=== PATIENT | male | born 1945 | race African-American/Black ===

== ENCOUNTER 2020-10-07 20:17 | Inpatient (IN) | payer MEDICARE ==
[~2020-10-07] VITALS: Ht 180.3 cm; Wt 54.4 kg
--- NOTE | 2020-10-07 20:30 | NUR ---
ED Nurse Note: Pt ambulated to ED from home c/o sharp stabbing pain in his chest that radiates to his L shoulder with dizziness and N for several hours at rest. Pt is A&OX4, vss pt placed on pvc monitor, EKG done, ERMD at bedside
--- NOTE | 2020-10-07 20:35 | NUR ---
ED Nurse Note: Pt denies pain or N at this moment
[2020-10-07] MEDS ORDERED: Omnipaque-300 100ml vial INJ STA (20:44)
--- NOTE | 2020-10-07 20:44 | Emergency Room Report ---
History of Present Illness General Chief Complaint: Chest Pain Source: Patient Present Illness HPI Patient presents with 2 problems. One is loss of appetite. This is associated with the 30 pound weight loss over 3 weeks. He also has had some vomiting. The second problem is chest pain. This has been going on for 3 weeks also. Feels that it is left anterior chest. He associates this with having had a vac cination in the left arm just prior to that time. The patient does smoke. He saw his doctor who ordered testing and x-rays a week ago but no results are come back yet. Patient denies diarrhea. His urine has been darker in color and orange. He rates the chest pain 4/10 and aching. It does not radiate. It somewhat positional. He denies it being exertional. The patient denies exposure to Covid positive contacts. No fevers, chills, sore throat, palpitations, dysuria, abdominal pain, shortness of breath, rashes, depression, anxiety, visual changes, dizziness, headache. Allergies: Coded Allergies: PENICILLINS (Verified Allergy, Unknown, 10/07/20) COVID-19 Screening Contact w/high risk pt: No Experienced COVID-19 symptoms?: No COVID-19 Testing performed MATERIAL CHECKER: No Patient History Past Medical History: see triage record Social History: Reports: smoking, alcohol use; Denies: drug use Social History Narrative Born in [place] moved to [place] age 10 Reviewed Nursing Documentation: PMH: Agreed; PSxH: Agreed Nursing Documentation-PM Past Medical History: No Stated History Review of Systems All Other Systems: negative except mentioned in HPI Physical Exam Vital Signs Date Time Temp Pulse Resp B/P (MAP) Pulse Ox O2 Delivery O2 Flow Rate FiO2 10/07/20 20:24 98.2 120 16 119/88 (98) 95 Room Air Sp02 EP Interpretation: reviewed, normal General Appearance: no apparent distress, GCS 15, non-toxic, thin, Chronically Ill Head: normocephalic Eyes: bilateral eye PERRL, bilateral eye EOMI, bilateral eye other - Arcus bilaterally ENT: moist mucus membranes Neck: supple Respiratory: lungs clear, normal breath sounds, other - Chest wall tenderness left anterior second and third ribs near sternum Cardiovascular #1: regular rate, rhythm, no edema Cardiovascular #2: 2+ radial (R) Gastrointestinal: normal inspection, normal bowel sounds, non tender, non- distended, other - Umbilical hernia easily reduced, scaphoid Genitourinary: no CVA tenderness Musculoskeletal: back normal, normal range of motion, no calf tenderness Neurologic: alert, oriented x3, grossly normal Psychiatric: mood/affect normal Skin: no rash, warm/dry, other - Clubbing Medical Decision Making Diagnostic Impression: Primary Impression: Metastatic cancer Qualified Codes: C79.9 - Secondary malignant neoplasm of unspecified site Additional Impressions: Bone metastases Liver metastases Pancreatic mass Leukocytosis Qualified Codes: D72.829 - Elevated white blood cell count, unspecified Weight loss COVID-19 ruled out by laboratory testing ER Course Patient presents with 2 main problems. 1 is weight loss and loss of appetite wi th vomiting. The second is chest pain. Differential includes acute myocardial infarction, costochondritis, bony metastasis to his chest from other possible GI or lung primary sources, pneumonia amongst others. Patient evaluated with EKG, chest x-ray, CT abdomen and chest and labs. Patient treated with aspirin and Toradol. Patient placed on a monitor car operator. EKG no injury. Chest x-ray with haziness left upper lobe. Leukocytosis. CT chest and abdomen and pelvis as below. Lung mass with bony metastasis. Mass head of pancreas with biliary dilatation. Hepatic lesions suggestive of metastatic disease. Renal metastasis. Antibiotics added for coverage of leukocytosis although infective process not identified. Discussed with Dr. Payton who accepts at [facility]. Discussed findings with patient and daughter including seriousness of diagnosis and the need for further evaluation and finding appropriate treatment plan. Pain in chest improved. COVID test negative. Laboratory Tests Test 10/07/20 20:30 10/07/20 20:45 White Blood Count 15.7 K/UL (4.8-10.8) H Red Blood Count 4.45 M/UL (4.70-6.10) L Hemoglobin 9.5 G/DL (14.2-18.0) L Hematocrit 29.5 % (42.0-52.0) L Mean Corpuscular Volume 66 FL (80-99) L Mean Corpuscular Hemoglobin 21.3 PG (27.0-31.0) L Mean Corpuscular Hemoglobin Concent 32.2 G/DL (32.0-36.0) Red Cell Distribution Width 17.1 % (11.6-14.8) H Platelet Count 251 K/UL (150-450) Mean Platelet Volume 8.6 FL (6.5-10.1) Neutrophils (%) (Auto) 72.3 % (45.0-75.0) Lymphocytes (%) (Auto) 8.9 % (20.0-45.0) L Monocytes (%) (Auto) 7.2 % (1.0-10.0) Eosinophils (%) (Auto) 11.0 % (0.0-3.0) H Basophils (%) (Auto) 0.6 % (0.0-2.0) Prothrombin Time 11.8 SEC (9.30-11.50) H Prothrombin Time INR 1.1 (0.9-1.1) Activated Partial Thromboplast Time 24 SEC (23-33) Sodium Level 134 MMOL/L (136-145) L Potassium Level 4.2 MMOL/L (3.5-5.1) Chloride Level 100 MMOL/L (98-107) Carbon Dioxide Level 25 MMOL/L (21-32) Anion Gap 9 mmol/L (5-15) Blood Urea Nitrogen 13 mg/dL (7-18) Creatinine 1.0 MG/DL (0.55-1.30) Estimated Glomerular Filtration Rate > 60 mL/min (>60) Glucose Level 102 MG/DL (74-106) Calcium Level 9.6 MG/DL (8.5-10.1) Magnesium Level 1.4 MG/DL (1.8-2.4) L Ferritin 300 NG/ML (8-388) Total Bilirubin 0.8 MG/DL (0.2-1.0) Aspartate Amino Transferase (AST) 32 U/L (15-37) Alanine Aminotransferase (ALT) 42 U/L (12-78) Alkaline Phosphatase 394 U/L (46-116) H Lactate Dehydrogenase 244 U/L (81-234) H Total Creatine Kinase 47 U/L (26-308) Troponin I 0.001 ng/mL (0.000-0.056) C-Reactive Protein, Quantitative 6.8 mg/dL (0.00-0.90) H Pro-B-Type Natriuretic Peptide 146 pg/mL (0-125) H Total Protein 7.2 G/DL (6.4-8.2) Albumin 3.0 G/DL (3.4-5.0) L Globulin 4.2 g/dL Albumin/Globulin Ratio 0.7 (1.0-2.7) L Lipase 192 U/L (73-393) Urine Color Yellow Urine Appearance Clear Urine pH 5 (4.5-8.0) Urine Specific [place] 1.010 (1.005-1.035) Urine Protein 2+ (NEGATIVE) H Urine Glucose (UA) Negative (NEGATIVE) Urine Ketones Negative (NEGATIVE) Urine Blood Negative (NEGATIVE) Urine Nitrite Negative (NEGATIVE) Urine Bilirubin Negative (NEGATIVE) Urine Urobilinogen 4 MG/DL (0.0-1.0) H Urine Leukocyte Esterase Negative (NEGATIVE) Urine RBC 0-2 /HPF (0 - 0) H Urine WBC 0 /HPF (0 - 0) Urine Squamous Epithelial Cells None /LPF (NONE/OCC) Urine Calcium Oxalate Crystals Few /LPF (NONE) Urine Bacteria None /HPF (NONE) Microbiology Date/Time Source Procedure Growth Status 10/07/20 20:45 Nasopharynx SARS-CoV-2 RdRp Gene Assay - Final Complete EKG Diagnostic Results Rate: normal Rhythm: NSR ST Segments: no acute changes - Nonspecific ST-T wave changes. Rate 98 Rhythm Strip Diag. Results EP Interpretation: yes Rhythm: NSR, no PVC's, no ectopy Chest X-Ray Diagnostic Results Chest X-Ray Diagnostic Results : Chest X-Ray Ordered: Yes # of Views/Limited/Complete: 1 View Indication: Chest Pain EP Interpretation: Yes Interpretation: no effusion, no pneumothorax, other - haziness ADAM Impression: Other Electronically Signed by: Electronically signed by Jr Benitez MD CT/MRI/US Diagnostic Results CT/MRI/US Diagnostic Results : Imaging Test Ordered: CT chest abdomen and pelvis Impression MPRESSION: Large mass in the region of the proximal pancreas partially surrounding the extrahepatic bile duct. There is significant intra-and extrahepatic biliary ductal dilatation. Finding is likely malignant. Adjacent mesenteric and retroperitoneal lymphadenopathy. Multiple hepatic metastases. Irregular gallbladder wall thickening indeterminate for inflammatory or neoplastic infiltration. Probable osteoblastic metastases. Findings highly suggestive of bilateral renal metastases. IMPRESSION: Malignant mass anterior right upper lobe extending to involve the chest wall. Adjacent satellite nodules and bony involvement anterior ribs on the left. Age- indeterminate mild fracture deformity T12. Last Vital Signs Date Time Temp Pulse Resp B/P (MAP) Pulse Ox O2 Delivery O2 Flow Rate FiO2 12/10/20 21:00 94 16 Room Air 10/07/20 21:00 98.2 121/71 95 Status: improved Disposition: SHORT-TERM HOSP Condition: Serious Jr Benitez MD Oct 07, 2020 20:44
[2020-10-07 21:00] VITALS: BP 121/71
--- NOTE | 2020-10-07 21:15 | NUR ---
ED Nurse Note: xray at bedside
[2020-10-07 21:18] LABS: ANION GAP 9 mmol/L (5-15); BLOOD UREA NITROGEN 13 mg/dL (7-18); CALCIUM 9.6 MG/DL (8.5-10.1); CARBON DIOXIDE 25 MMOL/L (21-32); CHLORIDE 100 MMOL/L (98-107); POTASSIUM 4.2 MMOL/L (3.5-5.1); SODIUM 134 MMOL/L (136-145)
[2020-10-07 21:21] LABS: INR 1.1 (0.9-1.1)
[2020-10-07 21:28] LABS: ALANINE AMINOTRANSFERASE 42 U/L (12-78); ALBUMIN/GLOBULIN RATIO 0.7 (1.0-2.7); ALKALINE PHOSPHATASE 394 U/L (46-116); ASPARTATE AMINO TRANSFERASE 32 U/L (15-37); BILIRUBIN,TOTAL 0.8 MG/DL (0.2-1.0); CREATINE KINASE 47 U/L (26-308); FERRITIN 300 NG/ML (8-388); LACTATE DEHYDROGENASE 244 U/L (81-234)
--- NOTE | 2020-10-07 21:33 | NUR ---
ED Nurse Note: Pt to CT
--- NOTE | 2020-10-07 22:00 | NUR ---
ED Nurse Note: Labs resent
[2020-10-07 22:05] LABS: BASOPHILS % (AUTO) 0.6 % (0.0-2.0); HEMATOCRIT 29.5 % (42.0-52.0); HEMOGLOBIN 9.5 G/DL (14.2-18.0); LYMPHOCYTES % (AUTO) 8.9 % (20.0-45.0); MEAN CORPUSCULAR VOLUME 66 FL (80-99); MONOCYTES % (AUTO) 7.2 % (1.0-10.0); NEUTROPHILS % (AUTO) 72.3 % (45.0-75.0); PLATELET COUNT 251 K/UL (150-450); RED BLOOD COUNT 4.45 M/UL (4.70-6.10); RED CELL DISTRIBUTION WIDTH 17.1 % (11.6-14.8); WHITE BLOOD COUNT 15.7 K/UL (4.8-10.8)
--- NOTE | 2020-10-07 22:29 | Diagnostic Imaging Report ---
EXAM: CT Abdomen and Pelvis With Intravenous Contrast CLINICAL HISTORY: CP TECHNIQUE: Axial computed tomography images of the abdomen and pelvis with intravenous contrast. CTDI is 3 mGy and DLP is 147.2 mGy-cm. One or more of the following dose reduction techniques were used: automated exposure control, adjustment of the mA and/or kV according to patient size, use of iterative reconstruction technique. COMPARISON: No relevant prior studies available. FINDINGS: Artifacts: Motion degraded study. Lung bases: Unremarkable. No mass. No consolidation. ABDOMEN: Liver: Multiple ill-defined masses in the hepatic parenchyma by most consistent with metastases. Gallbladder and bile ducts: Poorly defined mass in the region of the proximal pancreas partially surrounding segments of the extrahepatic bile duct. Mass difficult to separate from adjacent structures. Moderate intrahepatic and significant extrahepatic biliary ductal dilatation. Extrahepatic biliary ductal dilatation measures up to 13.5 mm. Mass unclear if of pancreatic origin or possibly of the biliary tree. There is moderate pancreatic ductal dilatation. The gallbladder is significantly distended with irregular gallbladder wall thickening. No gallstones identified. Unclear if wall thickening is malignant or inflammatory. Pancreas: See above. Spleen: Small indeterminate low attenuation focus anterior spleen. No splenomegaly. Adrenals: Unremarkable. No mass. Kidneys and ureters: Slightly irregular lesion in the anterior mid right renal pole measuring 55 HU and likely solid. Smaller foci are noted posterior and more inferior left kidney. These are indeterminate for primary or metastatic metastases. Similar lesion right kidney medial midpole and subcentimeter foci superior right upper renal pole. These are also likely solid and likely metastases. No hydronephrosis. Stomach and bowel: Moderate to large amount of retained stool in the colon. Negative for lower GI tract obstruction or pneumatosis. No mucosal thickening. PELVIS: Appendix: No findings to suggest acute appendicitis. Bladder: See below. Reproductive: Moderate irregular enlargement of the prostate gland. There is mass-effect on the posterior bladder base. Findings indeterminate for malignancy. ABDOMEN and PELVIS: Intraperitoneal space: Unremarkable. No free air. No significant fluid collection. Bones/joints: Irregular sclerotic focus left iliac bone adjacent to the SI joint, indeterminate for metastasis. There are additional small irregular sclerotic foci that are also indeterminate for metastases. No acute fracture. No dislocation. Soft tissues: Unremarkable. Vasculature: Unremarkable. No abdominal aortic aneurysm. Lymph nodes: Mesenteric and retroperitoneal lymphadenopathy in the abdomen. IMPRESSION: Large mass in the region of the proximal pancreas partially surrounding the extrahepatic bile duct. There is significant intra-and extrahepatic biliary ductal dilatation. Finding is likely malignant. Adjacent mesenteric and retroperitoneal lymphadenopathy. Multiple hepatic metastases. Irregular gallbladder wall thickening indeterminate for inflammatory or neoplastic infiltration. Probable osteoblastic metastases. Findings highly suggestive of bilateral renal metastases. EXAM: CT Chest With Intravenous Contrast CLINICAL HISTORY: CP TECHNIQUE: Axial computed tomography images of the chest with intravenous contrast. CTDI is 3 mGy and DLP is 147.2 mGy-cm. One or more of the following dose reduction techniques were used: automated exposure control, adjustment of the mA and/or kV according to patient size, use of iterative reconstruction technique. COMPARISON: No relevant prior studies available. FINDINGS: Lungs: Heterogeneously enhancing mass anterior left upper lobe invading into the mediastinum, extending through the pleura into the anterior chest wall with involvement of at least the first 3 ribs on the left. Intrathoracic portion of the mass measures approximately 12.8 cm craniocaudad, up to 4.1 cm AP and 6.9 cm transverse. The portion of the mass involving the chest wall retropectoral but likely invades and involves the pectoralis muscle measures approximately 2.4 x 9.6 x 8.7 cm. There are multiple adjacent ill-defined satellite nodules in the left upper lobe. Moderate underlying centrilobular emphysema. Indeterminate pleural-based nodule lateral left lower lobe measuring approximately 8.5 x 3.5 mm. Pleural space: Unremarkable. No pneumothorax. No significant effusion. Heart: Unremarkable. No cardiomegaly. No significant pericardial effusion. Bones/joints: Age indeterminate fracture T12 body with mild depression. Soft tissues: See above. Vasculature: Unremarkable. No thoracic aortic aneurysm. Lymph nodes: Unremarkable. No enlarged lymph nodes. IMPRESSION: Malignant mass anterior right upper lobe extending to involve the chest wall. Adjacent satellite nodules and bony involvement anterior ribs on the left. Age-indeterminate mild fracture deformity T12. <MYCVCSECTION> Communications: 10/07/20 22:41 Verify Receipt Verified receipt with Dr. Benitez on 10/07 22:41 (-08:00)
[2020-10-07] MEDS ORDERED: Cefepime HCl 1 GM in D5W 55 ML IVPB ONE (22:30)
[2020-10-07 23:58] LABS: APPEARANCE,URINE CLEAR; BILIRUBIN, URINE NEGATIVE (NEGATIVE); COLOR,URINE YELLOW; GLUCOSE, URINE (UA) NEGATIVE (NEGATIVE); KETONES,URINE NEGATIVE (NEGATIVE); LEUKOCYTE ESTERASE ,URINE NEGATIVE (NEGATIVE); NITRITE,URINE NEGATIVE (NEGATIVE); PH,URINE 5 (4.5-8.0); PROTEIN,URINE 2+ (NEGATIVE); UROBILINOGEN,URINE 4 MG/DL (0.0-1.0)
[2020-10-08] VITALS (11 sets, daily range): BP systolic 109–133; BP diastolic 67–85
--- NOTE | 2020-10-08 | NUR ---
ED Nurse Note: pt resting in bed with eyes closed, non-labored breathing, VSS, will continue to monitor
--- NOTE | 2020-10-08 00:45 | NUR ---
Covid(-) result faxed to [facility].
--- NOTE | 2020-10-08 04:00 | NUR ---
ED Nurse Note: Pt resting in bed with eyes closed, non-labored breathing. no signs of distress, will continue to monitor
--- NOTE | 2020-10-08 07:06 | NUR ---
HAND-OFF: Report given to SUKHJINDER kang.
--- NOTE | 2020-10-08 07:12 | NUR ---
ED Nurse Note: received report from libra causey.
[2020-10-08] MEDS ORDERED: TYLENOL EXTRA500 MG ORAL (08:12)
--- NOTE | 2020-10-08 08:15 | NUR ---
ED Nurse Note: patient admitted to m/s floor for weight loss and leukocytosis. report given to libra lorenz. pt transferred by wheelchair in stable condition, nad noted, vss with all belongings.
[2020-10-08] MEDS ORDERED: Acetaminophen 500mg (ES) tab ORAL PRN ×2 (10:00)
[2020-10-08] MEDS: HYDROmorphone 1mg/ml Carpuject IVP PRN ×2 (10:27→20:11)
[2020-10-08] MEDS: Aspirin Baby 81mg ORAL SCH (10:27)
[2020-10-08] MEDS: Vitamin D 1000 IU Tab ORAL SCH (10:27)
[2020-10-08] MEDS: Lisinopril 10mg tab ORAL SCH (10:27)
[2020-10-08] MEDS ORDERED: ASPIRIN81 MG ORAL (11:23)
[2020-10-08] MEDS ORDERED: COLACE100 MG ORAL (11:23)
[2020-10-08] MEDS ORDERED: TYLENOL325 M1 PO (11:23)
[2020-10-08] MEDS ORDERED: LISINOPRIL5 MG ORAL (11:23)
[2020-10-08] MEDS ORDERED: PRAVASTATIN SOD20 M1 ORAL (11:23)
[2020-10-08] MEDS ORDERED: NORVASC5 MG ORAL (11:23)
[2020-10-08] MEDS ORDERED: VITAMIN D3125 MCG PO (11:23)
--- NOTE | 2020-10-08 11:52 | General Progress Note ---
Subjective ROS Limited/Unobtainable: Yes Allergies: Coded Allergies: PENICILLINS (Verified Allergy, Unknown, 10/07/20) Objective Last 24 Hour Vital Signs Date Time Temp Pulse Resp B/P (MAP) Pulse Ox O2 Delivery O2 Flow Rate FiO2 10/08/20 10:28 90 109/85 10/08/20 10:27 109/85 10/08/20 10:21 Room Air 10/08/20 08:50 97.8 90 19 109/85 (93) 96 10/08/20 08:13 98.1 77 18 126/74 100 Room Air 10/08/20 07:00 98.2 82 16 123/67 98 Room Air 10/08/20 03:00 98.2 98 14 118/69 96 Room Air 10/08/20 00:00 98.2 102 16 126/72 95 Room Air 10/07/20 21:00 94 16 Room Air 10/07/20 21:00 98.2 94 16 121/71 95 Room Air 10/07/20 20:24 98.2 120 16 119/88 (98) 95 Room Air Laboratory Tests 10/07/20 20:30: White Blood Count 15.7H, Red Blood Count 4.45L, Hemoglobin 9.5L, Hematocrit 29.5L, Mean Corpuscular Volume 66L, Mean Corpuscular Hemoglobin 21.3L, Mean Corpuscular Hemoglobin Concent 32.2, Red Cell Distribution Width 17.1H, Platelet Count 251, Mean Platelet Volume 8.6, Neutrophils (%) (Auto) 72.3, Lymphocytes (%) (Auto) 8.9L, Monocytes (%) (Auto) 7.2, Eosinophils (%) (Auto) 11.0H, Basophils (%) (Auto) 0.6, Prothrombin Time 11.8H, Prothromb Time International R atio 1.1, Activated Partial Thromboplast Time 24, Sodium Level 134L, Potassium Level 4.2, Chloride Level 100, Carbon Dioxide Level 25, Anion Gap 9, Blood Urea Nitrogen 13, Creatinine 1.0, Estimat Glomerular Filtration Rate > 60, Glucose Level 102, Calcium Level 9.6, Magnesium Level 1.4L, Ferritin 300, Total Bilirubin 0.8, Aspartate Amino Transf (AST/SGOT) 32, Alanine Aminotransferase (ALT/SGPT) 42, Alkaline Phosphatase 394H, Lactate Dehydrogenase 244H, Total Creatine Kinase 47, Troponin I 0.001, C-Reactive Protein, Quantitative 6.8H, Pro-B-Type Natriuretic Peptide 146H, Total Protein 7.2, Albumin 3.0L, Globulin 4.2, Albumin/Globulin Ratio 0.7L, Lipase 192 10/07/20 20:45: Urine Color Yellow, Urine Appearance Clear, Urine pH 5, Urine Specific [place] 1.010, Urine Protein 2+H, Urine Glucose (UA) Negative, Urine Ketones Negative, Urine Blood Negative, Urine Nitrite Negative, Urine Bilirubin Negative, Urine Urobilinogen 4H, Urine Leukocyte Esterase Negative, Urine RBC 0-2H, Urine WBC 0, Urine Squamous Epithelial Cells None, Urine Calcium Oxalate Crystals Few, Urine Bacteria None Height (Feet): 5 Height (Inches): 11.00 Weight (Pounds): 120 General Appearance: no apparent distress EENT: normal ENT inspection Neck: supple Cardiovascular: normal rate Respiratory/Chest: decreased breath sounds Abdomen: hypoactive bowel sounds Extremities: non-tender Assessment/Plan Assessment/Plan: pancreatic mass with liver mets biliary dilatation anemia wt loss plan CT guided liver biopsy for DX tumor markes may need EUS and biopsy and ERCP will Marc Jameson MD Oct 08, 2020 11:52
[2020-10-08] MEDS ORDERED: Sodium Bicarbonate 4% 2.4meq/5ml vial IV PRN (12:00)
[2020-10-08] MEDS ORDERED: Lidocaine 1% Plain 30 ml INJ PRN (12:00)
[2020-10-08] MEDS ORDERED: HYDROmorphone 1mg/ml Carpuject IVP PRN (12:15)
--- NOTE | 2020-10-08 14:15 | NUR ---
NURSE NOTES: P/u by SUKHJINDER Arriaza and Soham for US guided liver biopsy. Consent signed by pt. Patient transported in stable condition.
--- NOTE | 2020-10-08 14:15 | NUR ---
NURSE NOTES: Received Pt from SUKHJINDER Ramsey. Pt is stable on RA. No complaint or s/s of distress at this time. Pt verbalized understanding of procedure to be done. Consent signed. Pt in bed for transport. Pt transported to Radiology without incident.
--- NOTE | 2020-10-08 14:20 | NUR ---
NURSE NOTES: At radiology, Pt was explained by Dr Krystian Adam regarding ultrasound guided biopsy of the chest. pt originally was to do ultrasound/CT guided biopsy of the liver but upon reviewing CT of the chest/abd/pelvis, biopsy of chest would be safer. Risks and benefits explained to pt, Pt given opportunity to ask questions and options. Pt verbalized understanding of procedure, and verbally agreed. pt is AOx4. Pt signed consent at this time, witnessed by Sofiya SLAUGHTER, and Soham HERNÁNDEZ.
--- NOTE | 2020-10-08 15:03 | NUR ---
CASE MANAGEMENT:INITIAL REVIEW 74 YR OLD MALE PRESENTED TO ED FROM HOME CC;CHEST PAIN Hx;METASTATIC CANCER TO BONE AND LIVER SI;WEIGHT LOSS. LEUKOCYTOSIS. COVID PUI. 98.2 120 16 126/72 95% ON RA WBC 15.7 H/H 9.5/29.5 NA 134 MAG 1.4 ALP 394 LDH 244 CRP 6.8 ALB 3.0 PT 11.8 UA+ PROTEIN, UROBILINOGEN, RBC COVID RAPID ~ NEGATIVE CHEST/ABD/PELVIS CT ~ Large mass in the region of the proximal pancreas partially surrounding the extrahepatic bile duct. There is significant intra-and extrahepatic biliary ductal dilatation. Finding is likely malignant. Adjacent mesenteric and retroperitoneal lymphadenopathy. Multiple hepatic metastases. Irregular gallbladder wall thickening indeterminate for inflammatory or neoplastic infiltration. Probable osteoblastic metastases. Findings highly suggestive of bilateral renal metastases. IS;IVF NS BOLUS CEFEPIME IV ADMITTED TO MED SURG MED SURG STATUS DCP;FROM HOME PLAN; plan CT guided liver biopsy for DX tumor markers may need EUS and biopsy and ERCP
--- NOTE | 2020-10-08 15:27 | Diagnostic Imaging Report ---
Indication: Chest pain Technique: XRAY Chest 1v Comparison: None Findings: Heart size within normal limits. Thoracic aorta is tortuous. There is asymmetric hazy opacification of the left apex. There is subtle irregularity of the left anterior first and second ribs. No pleural effusion or pneumothorax is seen. Area of atelectasis versus pulmonary edema. No acute fracture identified. IMPRESSION: Asymmetric haziness of the left apex with possible destructive lesions involving the anterior first and second ribs. Recommend further evaluation with CT of the chest as malignancy is not excluded.
--- NOTE | 2020-10-08 15:30 | NUR ---
NURSE NOTES: Received patient back from procedure. Patient in stable condition.
--- NOTE | 2020-10-08 15:30 | NUR ---
NURSE NOTES: Pt stable post procedure on RA 100%, unlabored even breathing. Pt reports no pain. Pt brought back to 4E, Pt report given back to SUKHJINDER Ramsey. Pt transferred from radiology to floor without incident with RT Soham.
--- NOTE | 2020-10-08 15:51 | Pre-Procedure Note/Attestation ---
Pre-Procedure Note/Attestation Complete Prior to Procedure Planned Procedure: left Procedure Narrative: US GUIDED CHEST WALL MASS BIOPSY Indications for Procedure Pre-Operative Diagnosis: ABDOMINAL AND CHEST WALL MASSES Attestation I attest that I discussed the nature of the procedure; its benefits; risks and complications; and alternatives (and the risks and benefits of such alternatives ), prior to the procedure, with the patient (or the patient's legal graphic art sales representative). I attest that, if there was a reasonable possibility of needing a blood transfusion, the patient (or the patient's legal graphic art sales representative) was given the [facility] standardized written summary, pursuant to the [place] Blood Safety Act ([place] Health and Safety Code # 1645, as amended). I attest that I re-evaluated the patient just prior to the surgery and that there has been no change in the patient's H&P, except as documented below: Krystian Adam MD Oct 08, 2020 15:51
--- NOTE | 2020-10-08 15:51 | Brief Operative Note ---
Immediate Post Operative Note Operative Note Chief Complaint: CHEST WALL MASS Pre-op Diagnosis: ABDOMINAL AND CHEST WALL MASSES Post-op Diagnosis: same as pre-op Surgeon: KRYSTIAN COLEMAN MD, MA Anesthesia: local Specimen: yes Complications: none Condition: stable Fluids: 0 Estimated Blood Loss: minimal Implant(s) used?: No Krystian Coleman MD Oct 08, 2020 15:51
--- NOTE | 2020-10-08 15:58 | Diagnostic Imaging Report ---
Indication: Reason For Exam: Chest PAIN Technique: Single AP view of the chest. Comparison: Chest radiograph dated 10/07/2020; CT chest dated 10/07/2020 Findings: The cardiomediastinal silhouette is unchanged in appearance. Redemonstration of haziness over the left upper lung corresponding to known chest wall mass. No new airspace consolidation. Emphysematous changes are again noted. No pneumothorax or pleural effusion. IMPRESSION: No significant change when compared to most recent examination.
--- NOTE | 2020-10-08 16:15 | History and Physical Report ---
DATE OF ADMISSION: 10/07/2020 HISTORY OF PRESENT ILLNESS: This is a 74-year-old male who presents to the hospital with weight loss. He also reported nausea and emesis. He also reported epigastric and sternal chest pain. He denies alcohol or tobacco usage. He denies diarrhea. He was seen and evaluated and found to have abnormalities consistent with metastatic carcinoma on assessment. LIST OF HOME MEDICATIONS: Norvasc, aspirin, lisinopril, and pravastatin. PAST HISTORY: Hypertension, hyperlipidemia. ALLERGIES: Penicillin. REVIEW OF SYSTEMS: Denies any headaches, hematemesis, melena, or hematochezia. Admits to having unspecified weight loss. PHYSICAL EXAMINATION: GENERAL: A 74-year-old male. HEENT: Unremarkable. LUNGS: Clear breath sounds bilaterally. ABDOMEN: Soft. EXTREMITIES: There is no edema. NEUROLOGIC: Nonfocal. VITAL SIGNS: Blood pressure 110/70, heart rate 94, respirations 19. He is afebrile. O2 sat 99% on room air. LABORATORY DATA: Lab testing shows white count 15, hemoglobin 9.5, platelet count is normal. Sodium 134, magnesium 1.4, alk phos is 24, LDH 244. AST ALT are normal. He underwent imaging studies and a CT chest and abdomen was obtained, which shows that he has a large mass in the proximal pancreas and multiple hepatic masses. IMPRESSION: 1. 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 2. Hypertension. 3. Hyperlipidemia. DISCUSSION: Additional findings include a mass in the left upper lobe and between mediastinum extending to the pleura into the anterior chest wall with the first 2 ribs as well. He also has emphysema. I suspect he has metastatic carcinoma. I discussed with the patient we will recommend liver biopsy. He may be a candidate for chemotherapy versus palliative care. We will follow carefully. Bernard Myers M.D. DR: RENAN JOB#: [id number] CC:
--- NOTE | 2020-10-08 16:17 | Diagnostic Imaging Report ---
SOFT TISSUE MASS BIOPSY Indication: Chest wall mass Technique: Informed consent obtained prior to commencement of the procedure. Risks, including but not limited to hemorrhage, infection, sampling error discussed with patient, all questions answered. He indicated his willingness to proceed. Ultrasound used to localize the optimal puncture site in the left chest subcutaneous soft tissues. Sterile prepping and draping with maximum barrier sterile technique including sterile ultrasound gel and sterile ultrasound probe cover. Local anesthesia with one percent lidocaine. Under real-time ultrasound guidance, total 4 needle passes made into the anterior left chest wall using 18-gauge coaxial needle with an Achieve automated biopsy gun. Specimens placed in formalin, submitted to pathology. The patient tolerated the procedure well, without immediate complication. Comparison: CT chest dated 10/07/2020. Findings: Initial ultrasound demonstrating large heterogeneous soft tissue mass interposed between and above left anterior ribs corresponding to CT chest findings. Impression: Successful ultrasound-guided coaxial core needle biopsy of left chest wall mass. No evidence of postbiopsy hematoma.
--- NOTE | 2020-10-08 16:50 | Consultation ---
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 Surgical to evaluate assist with care. Patient seen, patient evaluated, chart reviewed. Currently no nausea vomiting fever chills. Decreased appetite. Furthermore patient states he is feeling really weak lately states a few weeks ago he had the flu shot and since has developed a significant weakness that he cannot tell what it is. Also noted chest lesion. CT with lung lesion to chest wall growing Allergies: Coded Allergies: PENICILLINS (Verified Allergy, Unknown, 10/07/20) COVID-19 Screening Contact w/high risk pt: No Experienced COVID-19 symptoms?: No Medication History Scheduled Acetaminophen (Tylenol), 500 MG PO DAILY, (Reported) Amlodipine Besylate (Norvasc), 5 MG ORAL DAILY, (Reported) Aspirin* (Aspirin*), 81 MG ORAL DAILY, (Reported) Docusate Sodium* (Colace*), 100 MG ORAL DAILY, (Reported) Lisinopril (Lisinopril*), 10 MG ORAL DAILY, (Reported) Pravastatin Sod* (Pravastatin Sod*), 40 MG ORAL BEDTIME, (Reported) Scheduled PRN Acetaminophen* (Tylenol Extra Strength*), Unknown Dose ORAL Q6H PRN for Mild Pain/Temp > 100.5, (Reported) Miscellaneous Medications Cholecalciferol (Vitamin D3) (Vitamin D3), 1,000 MCG PO, (Reported) Patient History History Provided By: Patient, Medical Record, PMD Healthcare decision maker Resuscitation status Advanced Directive on File Past Medical/Surgical History Past Medical/Surgical History: (1) Metastatic cancer (2) Bone metastases (3) Liver metastases (4) COVID-19 ruled out by laboratory testing (5) Leukocytosis (6) Weight loss (7) Pancreatic mass Review of Systems Review of Symptoms General ROS: no weight loss or fever Psychological ROS: no depression or mood changes, no memory loss Ophthalmic ROS: no visual changes or eye irritation ENT ROS: no nasal congestion, hearing loss, dizziness Allergy and Immunology ROS: no allergic symptoms or urticaria Hematological and Lymphatic ROS: no swollen glands, unusual bleeding or bruising Endocrine ROS: no polyuria, polydipsia, weight changes, temperature intolerance Respiratory ROS: no cough, shortness of breath, or wheezing Cardiovascular ROS: no chest pain or dyspnea on exertion Gastrointestinal ROS: denies abdominal pain, bright red blood in stool. Musculoskeletal ROS: no myalgias or arthralgias Neurological ROS: no TIA or stroke symptoms Dermatological ROS: no new or changing skin lesions, rashes or pruritis Physical Exam Physical Exam General appearance: alert, cooperative, no distress, appears stated age Head: Normocephalic, without obvious abnormality, atraumatic Eyes: conjunctivae/corneas clear. PERRL, EOM's intact. Fundi benign Throat: Lips, mucosa, and tongue normal. Teeth and gums normal Neck: supple, symmetrical, trachea midline, no adenopathy, thyroid: not enlarged, symmetric, no tenderness/mass/nodules, no carotid bruit and no JVD Lungs: dec to auscultation bilaterally left chest wall with lesion and extension exanding mass Heart: regular rate and rhythm, S1, S2 normal, no murmur, click, rub or gallop Abdomen: soft, non-tender. Bowel sounds normal. No masses, no organomegaly Extremities: extremities normal, atraumatic, no cyanosis or edema Pulses: 2+ and symmetric Skin: Skin color, texture, turgor normal. No rashes or lesions Neurologic: Grossly normal Last 24 Hour Vital Signs Date Time Temp Pulse Resp B/P (MAP) Pulse Ox O2 Delivery O2 Flow Rate FiO2 10/08/20 16:00 97.7 90 20 122/81 (95) 100 10/08/20 15:10 97.7 90 16 122/81 (95) 100 10/08/20 15:07 84 19 133/79 (97) 100 10/08/20 15:02 97.3 94 18 125/77 (93) 99 10/08/20 14:27 86 17 10/08/20 12:00 98.7 95 19 110/71 (84) 94 10/08/20 10:28 90 109/85 10/08/20 10:27 109/85 10/08/20 10:21 Room Air 10/08/20 08:50 97.8 90 19 109/85 (93) 96 10/08/20 08:13 98.1 77 18 126/74 100 Room Air 10/08/20 07:00 98.2 82 16 123/67 98 Room Air 10/08/20 03:00 98.2 98 14 118/69 96 Room Air 10/08/20 00:00 98.2 102 16 126/72 95 Room Air 10/07/20 21:00 94 16 Room Air 10/07/20 21:00 98.2 94 16 121/71 95 Room Air 10/07/20 20:24 98.2 120 16 119/88 (98) 95 Room Air Laboratory Tests Test 10/07/20 20:30 10/07/20 20:45 White Blood Count 15.7 K/UL (4.8-10.8) H Red Blood Count 4.45 M/UL (4.70-6.10) L Hemoglobin 9.5 G/DL (14.2-18.0) L Hematocrit 29.5 % (42.0-52.0) L Mean Corpuscular Volume 66 FL (80-99) L Mean Corpuscular Hemoglobin 21.3 PG (27.0-31.0) L Mean Corpuscular Hemoglobin Concent 32.2 G/DL (32.0-36.0) Red Cell Distribution Width 17.1 % (11.6-14.8) H Platelet Count 251 K/UL (150-450) Mean Platelet Volume 8.6 FL (6.5-10.1) Neutrophils (%) (Auto) 72.3 % (45.0-75.0) Lymphocytes (%) (Auto) 8.9 % (20.0-45.0) L Monocytes (%) (Auto) 7.2 % (1.0-10.0) Eosinophils (%) (Auto) 11.0 % (0.0-3.0) H Basophils (%) (Auto) 0.6 % (0.0-2.0) Prothrombin Time 11.8 SEC (9.30-11.50) H Prothromb Time International Ratio 1.1 (0.9-1.1) Activated Partial Thromboplast Time 24 SEC (23-33) Sodium Level 134 MMOL/L (136-145) L Potassium Level 4.2 MMOL/L (3.5-5.1) Chloride Level 100 MMOL/L (98-107) Carbon Dioxide Level 25 MMOL/L (21-32) Anion Gap 9 mmol/L (5-15) Blood Urea Nitrogen 13 mg/dL (7-18) Creatinine 1.0 MG/DL (0.55-1.30) Estimat Glomerular Filtration Rate > 60 mL/min (>60) Glucose Level 102 MG/DL (74-106) Calcium Level 9.6 MG/DL (8.5-10.1) Magnesium Level 1.4 MG/DL (1.8-2.4) L Ferritin 300 NG/ML (8-388) Total Bilirubin 0.8 MG/DL (0.2-1.0) Aspartate Amino Transf (AST/SGOT) 32 U/L (15-37) Alanine Aminotransferase (ALT/SGPT) 42 U/L (12-78) Alkaline Phosphatase 394 U/L (46-116) H Lactate Dehydrogenase 244 U/L (81-234) H Total Creatine Kinase 47 U/L (26-308) Troponin I 0.001 ng/mL (0.000-0.056) C-Reactive Protein, Quantitative 6.8 mg/dL (0.00-0.90) H Pro-B-Type Natriuretic Peptide 146 pg/mL (0-125) H Total Protein 7.2 G/DL (6.4-8.2) Albumin 3.0 G/DL (3.4-5.0) L Globulin 4.2 g/dL Albumin/Globulin Ratio 0.7 (1.0-2.7) L Lipase 192 U/L (73-393) Urine Color Yellow Urine Appearance Clear Urine pH 5 (4.5-8.0) Urine Specific [place] 1.010 (1.005-1.035) Urine Protein 2+ (NEGATIVE) H Urine Glucose (UA) Negative (NEGATIVE) Urine Ketones Negative (NEGATIVE) Urine Blood Negative (NEGATIVE) Urine Nitrite Negative (NEGATIVE) Urine Bilirubin Negative (NEGATIVE) Urine Urobilinogen 4 MG/DL (0.0-1.0) H Urine Leukocyte Esterase Negative (NEGATIVE) Urine RBC 0-2 /HPF (0 - 0) H Urine WBC 0 /HPF (0 - 0) Urine Squamous Epithelial Cells None /LPF (NONE/OCC) Urine Calcium Oxalate Crystals Few /LPF (NONE) Urine Bacteria None /HPF (NONE) Microbiology Date/Time Source Procedure Growth Status 10/07/20 20:45 Nasopharynx SARS-CoV-2 RdRp Gene Assay - Final Complete Height (Feet): 5 Height (Inches): 11.00 Weight (Pounds): 120 Medications Current Medications Medications (Trade) Dose Ordered Sig/Melani Route PRN Reason Start Time Stop Time Status Last Admin Dose Admin Acetaminophen (Tylenol) 500 mg Q6H PRN ORAL Temp >100.5 10/08/20 10:00 11/07/20 09:59 Acetaminophen (Tylenol) 650 mg Q4H PRN ORAL Mild Pain (Pain Scale 1-3) 10/08/20 12:15 11/07/20 12:14 Amlodipine Besylate (Norvasc) 5 mg DAILY ORAL 10/08/20 10:00 11/07/20 09:59 10/08/20 10:28 Aspirin (ASA) 81 mg DAILY ORAL 10/08/20 10:00 11/22/20 09:59 10/08/20 10:27 Dextrose (Dextrose 50%) 25 ml Q30M PRN IV Hypoglycemia 10/08/20 12:15 01/06/21 12:14 Dextrose (Dextrose 50%) 50 ml Q30M PRN IV Hypoglycemia 10/08/20 12:15 01/06/21 12:14 Docusate Sodium (Colace) 100 mg DAILY ORAL 10/09/20 09:00 11/08/20 08:59 Heparin Sodium (Porcine) (Heparin 5000 units/ml) 5,000 units EVERY 12 HOURS SUBQ 10/08/20 21:00 11/22/20 20:59 Hydromorphone HCl (Dilaudid) 1 mg Q4H PRN IVP pain 4-10 10/08/20 09:15 10/15/20 09:14 10/08/20 10:27 Lidocaine HCl (Xylocaine 1% 30ml) 30 ml NOW PRN INJ Radiology Procedure 10/08/20 12:00 10/10/20 11:59 Lisinopril (ZestriL) 10 mg DAILY ORAL 10/08/20 10:00 11/07/20 09:59 10/08/20 10:27 Pravastatin Sodium (Pravachol) 40 mg BEDTIME ORAL 10/08/20 21:00 11/07/20 20:59 Sodium Bicarbonate (Sodium Bicarbonate 4%) 1 ml NOW PRN IV Radiology Procedure 10/08/20 12:00 10/10/20 11:59 Sodium Chloride 1,000 ml @ 50 mls/hr Q20H IVLG 10/08/20 13:15 11/07/20 13:14 10/08/20 13:42 Vitamin D (Vitamin D) 1,000 intlu DAILY ORAL 10/08/20 10:00 11/07/20 09:59 10/08/20 10:27 Assessment/Plan Problem List: (1) Metastatic cancer ICD Codes: C79.9 - Secondary malignant neoplasm of unspecified site SNOMED: 686215345, 848208331 Qualifiers: Qualified Codes: C79.9 - Secondary malignant neoplasm of unspecified site (2) Bone metastases ICD Codes: C79.51 - Secondary malignant neoplasm of bone SNOMED: 85628518, 664347724 (3) Liver metastases Assessment & Plan: very concerning CT panc mass liver mets lung mass needs tissue diagnosis biopsy ct guided liver may need eus with bx prognosis guarded no acute surgical intervention will follow with recs as biopsy available ABDOMEN: Liver: Multiple ill-defined masses in the hepatic parenchyma by most consistent with metastases. Gallbladder and bile ducts: Poorly defined mass in the region of the proximal pancreas partially surrounding segments of the extrahepatic bile duct. Mass difficult to separate from adjacent structures. Moderate intrahepatic and significant extrahepatic biliary ductal dilatation. Extrahepatic biliary ductal dilatation measures up to 13.5 mm. Mass unclear if of pancreatic origin or possibly of the biliary tree. There is moderate pancreatic ductal dilatation. The gallbladder is significantly distended with irregular gallbladder wall thickening. No gallstones identified. Unclear if wall thickening is malignant or inflammatory. Pancreas: See above. Spleen: Small indeterminate low attenuation focus anterior spleen. No splenomegaly. Adrenals: Unremarkable. No mass. Kidneys and ureters: Slightly irregular lesion in the anterior mid right renal pole measuring 55 HU and likely solid. Smaller foci are noted posterior and more inferior left kidney. These are indeterminate for primary or metastatic metastases. Similar lesion right kidney medial midpole and subcentimeter foci superior right upper renal pole. These are also likely solid and likely metastases. No hydronephrosis. Stomach and bowel: Moderate to large amount of retained stool in the colon. Negative for lower GI tract obstruction or pneumatosis. No mucosal thickening. PELVIS: Appendix: No findings to suggest acute appendicitis. Bladder: See below. Reproductive: Moderate irregular enlargement of the prostate gland. There is mass-effect on the posterior bladder base. Findings indeterminate for malignancy. ABDOMEN and PELVIS: Intraperitoneal space: Unremarkable. No free air. No significant fluid collection. Bones/joints: Irregular sclerotic focus left iliac bone adjacent to the SI joint, indeterminate for metastasis. There are additional small irregular sclerotic foci that are also indeterminate for metastases. No acute fracture. No dislocation. Soft tissues: Unremarkable. Vasculature: Unremarkable. No abdominal aortic aneurysm. Lymph nodes: Mesenteric and retroperitoneal lymphadenopathy in the abdomen. IMPRESSION: Large mass in the region of the proximal pancreas partially surrounding the extrahepatic bile duct. There is significant intra-and extrahepatic biliary ductal dilatation. Finding is likely malignant. Adjacent mesenteric and retroperitoneal lymphadenopathy. Multiple hepatic metastases. Irregular gallbladder wall thickening indeterminate for inflammatory or neoplastic infiltration. Probable osteoblastic metastases. Findings highly suggestive of bilateral renal metastases. EXAM: CT Chest With Intravenous Contrast CLINICAL HISTORY: CP TECHNIQUE: Axial computed tomography images of the chest with intravenous contrast. CTDI is 3 mGy and DLP is 147.2 mGy-cm. One or more of the following dose reduction techniques were used: automated exposure control, adjustment of the mA and/or kV according to patient size, use of iterative reconstruction technique. COMPARISON: No relevant prior studies available. FINDINGS: Lungs: Heterogeneously enhancing mass anterior left upper lobe invading into the mediastinum, extending through the pleura into the anterior chest wall with involvement of at least the first 3 ribs on the left. Intrathoracic portion of the mass measures approximately 12.8 cm craniocaudad, up to 4.1 cm AP and 6.9 cm transverse. The portion of the mass involving the chest wall retropectoral but likely invades and involves the pectoralis muscle measures approximately 2.4 x 9.6 x 8.7 cm. There are multiple adjacent ill-defined satellite nodules in the left upper lobe. Moderate underlying centrilobular emphysema. Indeterminate pleural-based nodule lateral left lower lobe measuring approximately 8.5 x 3.5 mm. Pleural space: Unremarkable. No pneumothorax. No significant effusion. Heart: Unremarkable. No cardiomegaly. No significant pericardial effusion. Bones/joints: Age indeterminate fracture T12 body with mild depression. Soft tissues: See above. Vasculature: Unremarkable. No thoracic aortic aneurysm. Lymph nodes: Unremarkable. No enlarged lymph nodes. IMPRESSION: Malignant mass anterior right upper lobe extending to involve the chest wall. Adjacent satellite nodules and bony involvement anterior ribs on the left. Age-indeterminate mild fracture deformity T12. ICD Codes: C78.7 - Secondary malignant neoplasm of liver and intrahepatic bile duct SNOMED: 79468548, 010268111 (4) COVID-19 ruled out by laboratory testing ICD Codes: Z03.818 - Encounter for observation for suspected exposure to other biological agents ruled out SNOMED: 479081492, 047910172 (5) Leukocytosis ICD Codes: D72.829 - Elevated white blood cell count, unspecified SNOMED: 014783937, 378258098 Qualifiers: Qualified Codes: D72.829 - Elevated white blood cell count, unspecified (6) Weight loss ICD Codes: R63.4 - Abnormal weight loss SNOMED: 13338101, 999995283 (7) Pancreatic mass ICD Codes: K86.89 - Other specified diseases of pancreas SNOMED: 063248398, 874679405 Clayton Huntley Oct 08, 2020 16:50
--- NOTE | 2020-10-08 19:08 | NUR ---
NURSE HAND-OFF: Important Events on Shift:ADMIT TO UNIT, S/P US GUIDED LIVER BIOPSY Patient Status: Stable Diet: reg Pending Orders: n.a Pending Results/Labs:n.a Pending MD notification:n.a Latest Vital Signs: Temperature 97.7 , Pulse 90 , B/P 122 /81 , Respiratory Rate 20 , O2 SAT 100 , Room Air, O2 Flow Rate . Vital Sign Comment: stable Latest [place]ado Fall Score: 35 Fall Risk: Medium Risk Safety Measures: Call light Within Reach, Bed Alarm Zone 1, Side Rails Side Rails x2, Bed position Low and Locked. Fall Precautions: Report given to SUKHJINDER Fulton.
--- NOTE | 2020-10-08 19:30 | NUR ---
NURSE NOTES: Patient on chair and seen ambulating in the room, alert and oriented x4, with complaint of severe pain more on back. Will medicate as ordered. Instructed to use call light for assistance. Bed in lowest and lock engaged. Will continue to monitor.
[2020-10-08] MEDS: Heparin 5000 units/ml inj SUBQ SCH (20:21)
--- NOTE | 2020-10-08 22:30 | NUR ---
NURSE NOTES: Spoke with patient's daughter twice since the start of the shift, [place] patient's next of kin. She wanted to talk to the MD regarding patient's procedure result. Called Dr. Myers and left message.
[2020-10-09] VITALS: BP 131/84
[2020-10-09 04:00] VITALS: BP 122/77
[2020-10-09] MEDS: HYDROmorphone 1mg/ml Carpuject IVP PRN ×3 (05:26→15:58)
--- NOTE | 2020-10-09 07:44 | NUR ---
NURSE HAND-OFF: Important Events on Shift: pain mgt Patient Status: Diet: regular Pending Orders: stool specimen collection Pending Results/Labs: am multiple labs Pending MD notification: Latest Vital Signs: Temperature 98.4 , Pulse 90 , B/P 122 /77 , Respiratory Rate 18 , O2 SAT 98 , Room Air, O2 Flow Rate . Vital Sign Comment: Latest [place] Fall Score: 35 Fall Risk: Medium Risk Safety Measures: Call light Within Reach, Bed Alarm Zone 1, Side Rails Side Rails x1, Bed position Low and Locked. Fall Precautions: Yellow Socks Door Sign Patient Fall Education Report given to SUKHJINDER Clark.
--- NOTE | 2020-10-09 07:52 | NUR ---
NURSE NOTES: Received pt from SUKHJINDER Fulton. pt was resting, no acute distress, call light w/in reach.
[2020-10-09 08:00] VITALS: BP 124/77
--- NOTE | 2020-10-09 08:31 | General Progress Note ---
Subjective ROS Limited/Unobtainable: Yes Allergies: Coded Allergies: PENICILLINS (Verified Allergy, Unknown, 10/07/20) Objective Last 24 Hour Vital Signs Date Time Temp Pulse Resp B/P (MAP) Pulse Ox O2 Delivery O2 Flow Rate FiO2 10/09/20 05:56 98.4 10/09/20 04:00 98.2 90 18 122/77 (92) 98 10/09/20 00:00 98.4 105 17 131/84 (100) 95 10/08/20 21:00 Room Air 10/08/20 20:00 97.8 105 20 125/84 (98) 93 10/08/20 16:00 97.7 90 20 122/81 (95) 100 10/08/20 15:10 97.7 90 16 122/81 (95) 100 10/08/20 15:07 84 19 133/79 (97) 100 10/08/20 15:02 97.3 94 18 125/77 (93) 99 10/08/20 14:27 86 17 10/08/20 12:00 98.7 95 19 110/71 (84) 94 10/08/20 10:28 90 109/85 10/08/20 10:27 109/85 10/08/20 10:21 Room Air 10/08/20 08:50 97.8 90 19 109/85 (93) 96 Intake and Output 10/08/20 10/09/20 19:00 07:00 Intake Total 800 ml 1000 ml Balance 800 ml 1000 ml Intake Oral 750 ml IV Total 50 ml 600 ml Other 400 ml # Voids 3 2 Height (Feet): 5 Height (Inches): 11.00 Weight (Pounds): 120 General Appearance: alert EENT: normal ENT inspection Neck: supple Cardiovascular: normal rate Respiratory/Chest: decreased breath sounds Abdomen: hypoactive bowel sounds, tender Extremities: non-tender Assessment/Plan Assessment/Plan: pancreatic mass with liver mets biliary dilatation anemia wt loss plan CT guided biopsy for DX tumor markers may need EUS and biopsy and ERCP will Marc Jameson MD Oct 09, 2020 08:31
[2020-10-09] MEDS: Docusate 100mg cap ORAL SCH (08:50)
[2020-10-09] MEDS: Aspirin Baby 81mg ORAL SCH (08:50)
[2020-10-09] MEDS: Lisinopril 10mg tab ORAL SCH (08:50)
[2020-10-09] MEDS: Vitamin D 1000 IU Tab ORAL SCH (08:50)
[2020-10-09] MEDS: Heparin 5000 units/ml inj SUBQ SCH ×2 (08:52→21:07)
[2020-10-09] MEDS ORDERED: Lisinopril 2.5mg tab ORAL SCH (09:00)
[2020-10-09 09:18] LABS: BASOPHILS % (AUTO) 0.5 % (0.0-2.0); EOSINOPHILS % (AUTO) 10.1 % (0.0-3.0); HEMATOCRIT 30.8 % (42.0-52.0); HEMOGLOBIN 9.9 G/DL (14.2-18.0); LYMPHOCYTES % (AUTO) 8.4 % (20.0-45.0); MEAN CORPUSCULAR VOLUME 65 FL (80-99); MONOCYTES % (AUTO) 5.6 % (1.0-10.0); NEUTROPHILS % (AUTO) 75.6 % (45.0-75.0); PLATELET COUNT 283 K/UL (150-450); RED BLOOD COUNT 4.73 M/UL (4.70-6.10); RED CELL DISTRIBUTION WIDTH 18.1 % (11.6-14.8); WHITE BLOOD COUNT 14.4 K/UL (4.8-10.8)
[2020-10-09 09:46] LABS: ALANINE AMINOTRANSFERASE 47 U/L (12-78); ALBUMIN 2.5 G/DL (3.4-5.0); ALBUMIN/GLOBULIN RATIO 0.6 (1.0-2.7); ALKALINE PHOSPHATASE 371 U/L (46-116); ANION GAP 4 mmol/L (5-15); ASPARTATE AMINO TRANSFERASE 28 U/L (15-37); BILIRUBIN,TOTAL 1.6 MG/DL (0.2-1.0); BLOOD UREA NITROGEN 10 mg/dL (7-18); CALCIUM 9.4 MG/DL (8.5-10.1); CARBON DIOXIDE 29 MMOL/L (21-32); CHLORIDE 103 MMOL/L (98-107); CREATININE 0.8 MG/DL (0.55-1.30); POTASSIUM 4.6 MMOL/L (3.5-5.1); SODIUM 136 MMOL/L (136-145)
[2020-10-09 09:47] LABS: BILIRUBIN,DIRECT 1.1 MG/DL (0.0-0.3)
[2020-10-09 10:27] LABS: % IRON SATURATION 10 % (15-50); IRON 19 ug/dL (50-175); TOTAL IRON BINDING CAPACITY 195 ug/dL (250-450)
--- NOTE | 2020-10-09 10:55 | NUR ---
CASE MANAGEMENT:REVIEW 10/09/20 SI: PANCREATIC CARCINOMA W/METS. HTN 98.1 94 18 124/77 95% ON RA WBC+14.4 TBILI+1.6 DBILI+1.1 IS: IVF@50/HR HEPARIN SQ Q12 NORVASC PO QD LISINOPRIL PO QD ASA PO QD IV DILAUDID Q4HRS PRN : MED/SURG STATUS 4 EAST DCP: FROM HOME
--- NOTE | 2020-10-09 11:47 | Pulmonology Progress Note ---
Subjective ROS Limited/Unobtainable: Yes Interval Events: none major Constitutional: Reports: anorexia; Denies: fever, chills, drenching sweats HEENT: Repors: no symptoms Respiratory: Reports: no symptoms Cardiovascular: Reports: no symptoms Gastrointestinal/Abdominal: Reports: constipation Allergies: Coded Allergies: PENICILLINS (Verified Allergy, Unknown, 10/07/20) Objective Last 24 Hour Vital Signs Date Time Temp Pulse Resp B/P (MAP) Pulse Ox O2 Delivery O2 Flow Rate FiO2 10/09/20 09:00 Room Air 10/09/20 08:51 94 124/77 10/09/20 08:50 124/77 10/09/20 08:00 98.1 94 18 124/77 (93) 95 10/09/20 05:56 98.4 10/09/20 04:00 98.2 90 18 122/77 (92) 98 10/09/20 00:00 98.4 105 17 131/84 (100) 95 10/08/20 21:00 Room Air 10/08/20 20:00 97.8 105 20 125/84 (98) 93 10/08/20 16:00 97.7 90 20 122/81 (95) 100 10/08/20 15:10 97.7 90 16 122/81 (95) 100 10/08/20 15:07 84 19 133/79 (97) 100 10/08/20 15:02 97.3 94 18 125/77 (93) 99 10/08/20 14:27 86 17 10/08/20 12:00 98.7 95 19 110/71 (84) 94 Intake and Output 10/08/20 10/09/20 19:00 07:00 Intake Total 800 ml 1000 ml Balance 800 ml 1000 ml Intake Oral 750 ml IV Total 50 ml 600 ml Other 400 ml # Voids 3 2 Objective 10/09/2020 pt in bed using his phone; NAD; saturating well on RA General Appearance: no acute distress, cachetic HEENT: normocephalic, atraumatic Respiratory: decreased breath sounds Cardiovascular: normal rate, regular rhythm, no gallop/murmur Abdomen: hypoactive bowel sounds, other - tender Skin: no rash Neurologic: alert, oriented x 3 Microbiology Date/Time Source Procedure Growth Status 10/07/20 20:45 Nasopharynx SARS-CoV-2 RdRp Gene Assay - Final Complete Laboratory Tests 10/09/20 08:40: White Blood Count 14.4H, Red Blood Count 4.73, Hemoglobin 9.9L, Hematocrit 30.8L , Mean Corpuscular Volume 65L, Mean Corpuscular Hemoglobin 20.9L, Mean Corpuscular Hemoglobin Concent 32.0, Red Cell Distribution Width 18.1H, Platelet Count 283, Mean Platelet Volume 9.3, Neutrophils (%) (Auto) 75.6H, Lymphocytes (%) (Auto) 8.4L, Monocytes (%) (Auto) 5.6, Eosinophils (%) (Auto) 10.1H, Basophils (%) (Auto) 0.5, Prothrombin Time 11.2, Prothromb Time International Ratio 1.0, Activated Partial Thromboplast Time 30, Sodium Level 136, Potassium Level 4.6, Chloride Level 103, Carbon Dioxide Level 29, Anion Gap 4L, Blood Urea Nitrogen 10, Creatinine 0.8, Estimat Glomerular Filtration Rate > 60, Glucose Level 99, Calcium Level 9.4, Iron Level 19L, Total Iron Binding Capacity 195L, Percent Iron Saturation 10L, Unsaturated Iron Binding 176, Total Bilirubin 1.6H, Direct Bilirubin 1.1H, Aspartate Amino Transf (AST/SGOT) 28, Alanine Aminotransferase (ALT/SGPT) 47, Alkaline Phosphatase 371H, Total Protein 6.4, Albumin 2.5L, Globulin 3.9, Albumin/Globulin Ratio 0.6L, Alpha Fetoprotein [Pending], Carcinoembryonic Antigen [Pending], CA 19-9 Antigen [Pending], Vitamin B12 Level 582, Folate 4.8L Current Medications Medications (Trade) Dose Ordered Sig/Melani Route PRN Reason Start Time Stop Time Status Last Admin Dose Admin Acetaminophen (Tylenol) 500 mg Q6H PRN ORAL Temp >100.5 10/08/20 10:00 11/07/20 09:59 Acetaminophen (Tylenol) 650 mg Q4H PRN ORAL Mild Pain (Pain Scale 1-3) 10/08/20 12:15 11/07/20 12:14 Amlodipine Besylate (Norvasc) 5 mg DAILY ORAL 10/08/20 10:00 11/07/20 09:59 10/09/20 08:51 Aspirin (ASA) 81 mg DAILY ORAL 10/08/20 10:00 11/22/20 09:59 10/09/20 08:50 Dextrose (Dextrose 50%) 25 ml Q30M PRN IV Hypoglycemia 10/08/20 12:15 01/06/21 12:14 Dextrose (Dextrose 50%) 50 ml Q30M PRN IV Hypoglycemia 10/08/20 12:15 01/06/21 12:14 Docusate Sodium (Colace) 100 mg DAILY ORAL 10/09/20 09:00 11/08/20 08:59 10/09/20 08:50 Heparin Sodium (Porcine) (Heparin 5000 units/ml) 5,000 units EVERY 12 HOURS SUBQ 10/08/20 21:00 11/22/20 20:59 10/09/20 08:52 Hydromorphone HCl (Dilaudid) 1 mg Q4H PRN IVP pain 4-10 10/08/20 09:15 10/15/20 09:14 10/09/20 05:26 Lidocaine HCl (Xylocaine 1% 30ml) 30 ml NOW PRN INJ Radiology Procedure 10/08/20 12:00 10/10/20 11:59 Lisinopril (ZestriL) 10 mg DAILY ORAL 10/08/20 10:00 11/07/20 09:59 10/09/20 08:50 Pravastatin Sodium (Pravachol) 40 mg BEDTIME ORAL 10/08/20 21:00 11/07/20 20:59 10/08/20 20:11 Sodium Bicarbonate (Sodium Bicarbonate 4%) 1 ml NOW PRN IV Radiology Procedure 10/08/20 12:00 10/10/20 11:59 Sodium Chloride 1,000 ml @ 50 mls/hr Q20H IVLG 10/08/20 13:15 11/07/20 13:14 10/09/20 08:53 Vitamin D (Vitamin D) 1,000 intlu DAILY ORAL 10/08/20 10:00 11/07/20 09:59 10/09/20 08:50 Assessment/Plan Assessment/Plan 1. 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 - 10/08/2020 s/p US guided Bx of chest wall mass, result pending 2. Hx of Hypertension. 3. Hyperlipidemia. 4. Anemia DISCUSSION: Additional findings include a mass in the left upper lobe and between mediastinum extending to the pleura into the anterior chest wall with the first 2 ribs as well. He also has emphysema. Metastatic carcinoma suspected. Liver biopsy is recommended to which pt agreed. He may be a candidate for chemotherapy versus palliative care. Discussed with daughter Likely dc home tomorrow on hospice Added Oxycodone and laxatives The care for this patient was discussed with my supervising physician Time spent for this case was approximately 31 minutes The patient was seen and examined at bedside and all new and available data was reviewed in the patients chart. I agree with the above findings, impression, and plan. (Patient was seen earlier today. Signature timestamp does not reflect patient encounter time) Carlos Cornejo MD Oct 09, 2020 11:47 Bernard Myers MD Oct 09, 2020 18:16
[2020-10-09 12:00] VITALS: BP 118/73
--- NOTE | 2020-10-09 12:00 | NUR ---
NURSE NOTES: Remind HOSIERY BAGGER Saida, and Dr. Myers regarding Mg 1.4. said that no order need at this time.
[2020-10-09 16:00] VITALS: BP 120/63
[2020-10-09] MEDS ORDERED: Lactulose 20gm/30ml UDC ORAL PRN (16:30)
[2020-10-09] MEDS: oxyCODONE 5mg IR tab ORAL SCH ×2 (17:00→21:07)
--- NOTE | 2020-10-09 17:56 | Surgery Progress Note ---
Surgery Progress Note Subjective Additional Comments no complaints no n/v/f/c Objective Last 24 Hour Vital Signs Date Time Temp Pulse Resp B/P (MAP) Pulse Ox O2 Delivery O2 Flow Rate FiO2 10/09/20 16:00 98.0 92 18 120/63 (82) 95 10/09/20 12:00 98.1 97 18 118/73 (88) 98 10/09/20 09:00 Room Air 10/09/20 08:51 94 124/77 10/09/20 08:50 124/77 10/09/20 08:00 98.1 94 18 124/77 (93) 95 10/09/20 05:56 98.4 10/09/20 04:00 98.2 90 18 122/77 (92) 98 10/09/20 00:00 98.4 105 17 131/84 (100) 95 10/08/20 21:00 Room Air 10/08/20 20:00 97.8 105 20 125/84 (98) 93 I&O Intake and Output 10/08/20 10/09/20 19:00 07:00 Intake Total 800 ml 1000 ml Balance 800 ml 1000 ml Intake Oral 750 ml IV Total 50 ml 600 ml Other 400 ml # Voids 3 2 Dressing: saturated Cardiovascular: RSR Respiratory: decreased breath sounds Abdomen: non-tender, present bowel sounds Extremities: no tenderness, no cyanosis Laboratory Tests Test 10/09/20 08:40 White Blood Count 14.4 K/UL (4.8-10.8) H Red Blood Count 4.73 M/UL (4.70-6.10) Hemoglobin 9.9 G/DL (14.2-18.0) L Hematocrit 30.8 % (42.0-52.0) L Mean Corpuscular Volume 65 FL (80-99) L Mean Corpuscular Hemoglobin 20.9 PG (27.0-31.0) L Mean Corpuscular Hemoglobin Concent 32.0 G/DL (32.0-36.0) Red Cell Distribution Width 18.1 % (11.6-14.8) H Platelet Count 283 K/UL (150-450) Mean Platelet Volume 9.3 FL (6.5-10.1) Neutrophils (%) (Auto) 75.6 % (45.0-75.0) H Lymphocytes (%) (Auto) 8.4 % (20.0-45.0) L Monocytes (%) (Auto) 5.6 % (1.0-10.0) Eosinophils (%) (Auto) 10.1 % (0.0-3.0) H Basophils (%) (Auto) 0.5 % (0.0-2.0) Prothrombin Time 11.2 SEC (9.30-11.50) Prothromb Time International Ratio 1.0 (0.9-1.1) Activated Partial Thromboplast Time 30 SEC (23-33) Sodium Level 136 MMOL/L (136-145) Potassium Level 4.6 MMOL/L (3.5-5.1) Chloride Level 103 MMOL/L (98-107) Carbon Dioxide Level 29 MMOL/L (21-32) Anion Gap 4 mmol/L (5-15) L Blood Urea Nitrogen 10 mg/dL (7-18) Creatinine 0.8 MG/DL (0.55-1.30) Estimat Glomerular Filtration Rate > 60 mL/min (>60) Glucose Level 99 MG/DL (74-106) Calcium Level 9.4 MG/DL (8.5-10.1) Iron Level 19 ug/dL (50-175) L Total Iron Binding Capacity 195 ug/dL (250-450) L Percent Iron Saturation 10 % (15-50) L Unsaturated Iron Binding 176 ug/dL (112-346) Total Bilirubin 1.6 MG/DL (0.2-1.0) H Direct Bilirubin 1.1 MG/DL (0.0-0.3) H Aspartate Amino Transf (AST/SGOT) 28 U/L (15-37) Alanine Aminotransferase (ALT/SGPT) 47 U/L (12-78) Alkaline Phosphatase 371 U/L (46-116) H Total Protein 6.4 G/DL (6.4-8.2) Albumin 2.5 G/DL (3.4-5.0) L Globulin 3.9 g/dL Albumin/Globulin Ratio 0.6 (1.0-2.7) L Alpha Fetoprotein Pending Carcinoembryonic Antigen Pending CA 19-9 Antigen Pending Vitamin B12 Level 582 PG/ML (193-986) Folate 4.8 NG/ML (8.6-58.9) L Plan Problems: (1) Metastatic cancer (2) Bone metastases (3) Liver metastases Assessment & Plan: very concerning CT panc mass liver mets lung mass needs tissue diagnosis biopsy ct guided liver may need eus with bx prognosis guarded no acute surgical intervention will follow with recs as biopsy available ABDOMEN: Liver: Multiple ill-defined masses in the hepatic parenchyma by most consistent with metastases. Gallbladder and bile ducts: Poorly defined mass in the region of the proximal pancreas partially surrounding segments of the extrahepatic bile duct. Mass difficult to separate from adjacent structures. Moderate intrahepatic and significant extrahepatic biliary ductal dilatation. Extrahepatic biliary ductal dilatation measures up to 13.5 mm. Mass unclear if of pancreatic origin or possibly of the biliary tree. There is moderate pancreatic ductal dilatation. The gallbladder is significantly distended with irregular gallbladder wall thickening. No gallstones identified. Unclear if wall thickening is malignant or inflammatory. Pancreas: See above. Spleen: Small indeterminate low attenuation focus anterior spleen. No splenomegaly. Adrenals: Unremarkable. No mass. Kidneys and ureters: Slightly irregular lesion in the anterior mid right renal pole measuring 55 HU and likely solid. Smaller foci are noted posterior and more inferior left kidney. These are indeterminate for primary or metastatic metastases. Similar lesion right kidney medial midpole and subcentimeter foci superior right upper renal pole. These are also likely solid and likely metastases. No hydronephrosis. Stomach and bowel: Moderate to large amount of retained stool in the colon. Negative for lower GI tract obstruction or pneumatosis. No mucosal thickening. PELVIS: Appendix: No findings to suggest acute appendicitis. Bladder: See below. Reproductive: Moderate irregular enlargement of the prostate gland. There is mass-effect on the posterior bladder base. Findings indeterminate for malignancy. ABDOMEN and PELVIS: Intraperitoneal space: Unremarkable. No free air. No significant fluid collection. Bones/joints: Irregular sclerotic focus left iliac bone adjacent to the SI joint, indeterminate for metastasis. There are additional small irregular sclerotic foci that are also indeterminate for metastases. No acute fracture. No dislocation. Soft tissues: Unremarkable. Vasculature: Unremarkable. No abdominal aortic aneurysm. Lymph nodes: Mesenteric and retroperitoneal lymphadenopathy in the abdomen. IMPRESSION: Large mass in the region of the proximal pancreas partially surrounding the extrahepatic bile duct. There is significant intra-and extrahepatic biliary ductal dilatation. Finding is likely malignant. Adjacent mesenteric and retroperitoneal lymphadenopathy. Multiple hepatic metastases. Irregular gallbladder wall thickening indeterminate for inflammatory or neoplastic infiltration. Probable osteoblastic metastases. Findings highly suggestive of bilateral renal metastases. EXAM: CT Chest With Intravenous Contrast CLINICAL HISTORY: CP TECHNIQUE: Axial computed tomography images of the chest with intravenous contrast. CTDI is 3 mGy and DLP is 147.2 mGy-cm. One or more of the following dose reduction techniques were used: automated exposure control, adjustment of the mA and/or kV according to patient size, use of iterative reconstruction technique. COMPARISON: No relevant prior studies available. FINDINGS: Lungs: Heterogeneously enhancing mass anterior left upper lobe invading into the mediastinum, extending through the pleura into the anterior chest wall with involvement of at least the first 3 ribs on the left. Intrathoracic portion of the mass measures approximately 12.8 cm craniocaudad, up to 4.1 cm AP and 6.9 cm transverse. The portion of the mass involving the chest wall retropectoral but likely invades and involves the pectoralis muscle measures approximately 2.4 x 9.6 x 8.7 cm. There are multiple adjacent ill-defined satellite nodules in the left upper lobe. Moderate underlying centrilobular emphysema. Indeterminate pleural-based nodule lateral left lower lobe measuring approximately 8.5 x 3.5 mm. Pleural space: Unremarkable. No pneumothorax. No significant effusion. Heart: Unremarkable. No cardiomegaly. No significant pericardial effusion. Bones/joints: Age indeterminate fracture T12 body with mild depression. Soft tissues: See above. Vasculature: Unremarkable. No thoracic aortic aneurysm. Lymph nodes: Unremarkable. No enlarged lymph nodes. IMPRESSION: Malignant mass anterior right upper lobe extending to involve the chest wall. Adjacent satellite nodules and bony involvement anterior ribs on the left. Age-indeterminate mild fracture deformity T12. (4) COVID-19 ruled out by laboratory testing (5) Leukocytosis (6) Weight loss (7) Pancreatic mass Clayton Huntley Oct 09, 2020 17:56
[2020-10-09] MEDS: Lactulose 20gm/30ml UDC ORAL PRN (18:14)
--- NOTE | 2020-10-09 19:29 | NUR ---
HAND-OFF: Report given to SUKHJINDER Kilpatrick. pt is stable condition.
--- NOTE | 2020-10-09 19:54 | NUR ---
NURSE NOTES: Received patient in bed, awake, alert, oriented x4, able to make his needs known, IV site is clean dry and intact. Patient can use urinal, has poor appetite. Call light is within reach, bed is lowered, locked, alarm is on, will continue to monitor for comfort and safety.
[2020-10-09 20:00] VITALS: BP 127/74
[2020-10-10] VITALS: BP 127/74
[2020-10-10] MEDS: oxyCODONE 5mg IR tab ORAL SCH ×5 (01:02→17:38)
[2020-10-10 04:00] VITALS: BP 129/74
--- NOTE | 2020-10-10 07:29 | NUR ---
NURSE HAND-OFF: Important Events on Shift:uneventful Patient Status: full Diet:regular, poor appetite Pending Orders: Pending Results/Labs: Pending MD notification: Latest Vital Signs: Temperature 98.4 , Pulse 74 , B/P 129 /74 , Respiratory Rate 22 , O2 SAT 97 , Room Air, O2 Flow Rate . Vital Sign Comment: Latest [place] Fall Score: 45 Fall Risk: High Risk Safety Measures: Call light Within Reach, Bed Alarm Zone 1, Side Rails Side Rails x2, Bed position Low and Locked. Fall Precautions: Yellow Socks Door Sign Patient Fall Education Report given to Kaylie SLAUGHTER
[2020-10-10 08:00] VITALS: BP 126/80
--- NOTE | 2020-10-10 08:00 | NUR ---
NURSE NOTES: Received patient in bed, awake, alert, oriented, no complaint of pain or discomfort at this time. Patient is able to make his needs known. [facility] PIV site is clean, dry and intact, and patient receives IVF NS @ 50cc/hr. Patient uses urinal, urine is dark [place]. Patient has poor appetite. Call light is within reach, bed is lowered, locked, alarm is on, side rails up X2. will continue to monitor patient and follow up with the plan of care.
[2020-10-10] MEDS: Vitamin D 1000 IU Tab ORAL SCH (09:56)
[2020-10-10] MEDS: Aspirin Baby 81mg ORAL SCH (09:56)
[2020-10-10] MEDS: Docusate 100mg cap ORAL SCH (09:57)
[2020-10-10] MEDS: Lisinopril 10mg tab ORAL SCH (09:57)
[2020-10-10] MEDS: Heparin 5000 units/ml inj SUBQ SCH (09:59)
[2020-10-10 10:52] LABS: BASOPHILS % (AUTO) 0.9 % (0.0-2.0); EOSINOPHILS % (AUTO) 9.9 % (0.0-3.0); LYMPHOCYTES % (AUTO) 8.9 % (20.0-45.0); MEAN CORPUSCULAR VOLUME 65 FL (80-99); MONOCYTES % (AUTO) 5.7 % (1.0-10.0); NEUTROPHILS % (AUTO) 74.5 % (45.0-75.0); PLATELET COUNT 288 K/UL (150-450); RED CELL DISTRIBUTION WIDTH 18.7 % (11.6-14.8); WHITE BLOOD COUNT 13.9 K/UL (4.8-10.8)
--- NOTE | 2020-10-10 10:57 | General Progress Note ---
Subjective ROS Limited/Unobtainable: Yes Allergies: Coded Allergies: PENICILLINS (Verified Allergy, Unknown, 10/07/20) Objective Last 24 Hour Vital Signs Date Time Temp Pulse Resp B/P (MAP) Pulse Ox O2 Delivery O2 Flow Rate FiO2 10/10/20 09:57 102 126/80 10/10/20 09:57 126/80 10/10/20 08:00 98.4 102 19 126/80 (95) 96 10/10/20 04:00 98.4 74 22 129/74 (92) 97 10/10/20 00:00 97.4 74 20 127/74 (91) 98 10/09/20 22:05 Room Air 10/09/20 20:00 98.5 87 18 127/74 (91) 98 10/09/20 16:00 98.0 92 18 120/63 (82) 95 10/09/20 12:00 98.1 97 18 118/73 (88) 98 Intake and Output 10/09/20 10/10/20 19:00 07:00 Intake Total 950 ml Output Total 500 ml Balance 950 ml -500 ml Intake Oral 400 ml IV Total 550 ml Output Urine Total 500 ml # Voids 2 Laboratory Tests 10/10/20 10:30: White Blood Count 13.9H, Red Blood Count 4.90, Hemoglobin 10.0L, Hematocrit 32.0L, Mean Corpuscular Volume 65L, Mean Corpuscular Hemoglobin 20.4L, Mean Corpuscular Hemoglobin Concent 31.3L, Red Cell Distribution Width 18.7H, Platelet Count 288, Mean Platelet Volume 9.5, Neutrophils (%) (Auto) 74.5, Lymphocytes (%) (Auto) 8.9L, Monocytes (%) (Auto) 5.7, Eosinophils (%) (Auto) 9.9H, Basophils (%) (Auto) 0.9, Sodium Level [Pending], Potassium Level [Pending], Chloride Level [Pending], Carbon Dioxide Level [Pending], Blood Urea Nitrogen [Pending], Creatinine [Pending], Estimat Glomerular Filtration Rate [Pending], Glucose Level [Pending], Calcium Level [Pending], Total Bilirubin [Pending], Aspartate Amino Transf (AST/SGOT) [Pending], Alanine Aminotransferase (ALT/SGPT) [Pending], Alkaline Phosphatase [Pending], Total Protein [Pending], Albumin [Pending], Globulin [Pending] Height (Feet): 5 Height (Inches): 11.00 Weight (Pounds): 120 General Appearance: no apparent distress EENT: TMs normal Neck: supple Cardiovascular: normal rate Respiratory/Chest: decreased breath sounds Abdomen: normal bowel sounds, non tender, soft Assessment/Plan Assessment/Plan: pancreatic mass with liver mets biliary dilatation anemia wt loss s/p us guided biopsy for DX tumor markers>> elevated CEA may need EUS and biopsy and ERCP replace folic acid will Marc Jameson MD Oct 10, 2020 10:57
[2020-10-10] MEDS: Lactulose 20gm/30ml UDC ORAL PRN (11:02)
[2020-10-10 11:20] LABS: ALANINE AMINOTRANSFERASE 47 U/L (12-78); ALBUMIN 2.5 G/DL (3.4-5.0); ALBUMIN/GLOBULIN RATIO 0.6 (1.0-2.7); ALKALINE PHOSPHATASE 379 U/L (46-116); ANION GAP 10 mmol/L (5-15); ASPARTATE AMINO TRANSFERASE 32 U/L (15-37); BILIRUBIN,TOTAL 2.5 MG/DL (0.2-1.0); BLOOD UREA NITROGEN 9 mg/dL (7-18); CALCIUM 9.6 MG/DL (8.5-10.1); CARBON DIOXIDE 26 MMOL/L (21-32); CHLORIDE 101 MMOL/L (98-107); CREATININE 0.7 MG/DL (0.55-1.30); POTASSIUM 3.8 MMOL/L (3.5-5.1); SODIUM 137 MMOL/L (136-145)
--- NOTE | 2020-10-10 11:32 | NUR ---
RD ASSESSMENT & RECOMMENDATIONS SEE CARE ACTIVITY FOR COMPLETE ASSESSMENT DAILY ESTIMATED NEEDS: Needs based on Suspected mets dz, wt loss, underweight status 54.5kg 30-40 kcals/kg 3150-0617 total kcals 1-2 g protein/kg 55-109 g total protein 25-30 mL/kg 8762-9683 total fluid mLs NUTRITION DIAGNOSIS: Increased kcal and pro needs r/t weight loss, suspected mets dz as evidenced by pt reports 14# wt loss, 10% wt change, BMI underweight per guidelines, pt is 70% of ideal body weight, w/ lung and pancreatic mass, w/ liver mets. CURRENT DIET: Regular PO DIET RECOMMENDATIONS: regular Soft diet as tolerated ADDITIONAL RECOMMENDATIONS: 1) Obtain a standing wt as able. 2) Add ensure enlive BID Snacks as tolerated in b/w meals 3) Bowel regimen, pt reports last bm 8 days ago 4) Monitor hydration status w/ irregular po intake
--- NOTE | 2020-10-10 11:33 | Surgery Progress Note ---
Surgery Progress Note Subjective Additional Comments gi input noted pending pathology no n/v Objective Last 24 Hour Vital Signs Date Time Temp Pulse Resp B/P (MAP) Pulse Ox O2 Delivery O2 Flow Rate FiO2 10/10/20 09:57 102 126/80 10/10/20 09:57 126/80 10/10/20 09:00 Room Air 10/10/20 08:00 98.4 102 19 126/80 (95) 96 10/10/20 04:00 98.4 74 22 129/74 (92) 97 10/10/20 00:00 97.4 74 20 127/74 (91) 98 10/09/20 22:05 Room Air 10/09/20 20:00 98.5 87 18 127/74 (91) 98 10/09/20 16:00 98.0 92 18 120/63 (82) 95 10/09/20 12:00 98.1 97 18 118/73 (88) 98 I&O Intake and Output 0 10/09/20 10/10/20 19:00 07:00 Intake Total 950 ml Output Total 500 ml Balance 950 ml -500 ml Intake Oral 400 ml IV Total 550 ml Output Urine Total 500 ml # Voids 2 Cardiovascular: RSR Respiratory: decreased breath sounds Abdomen: non-tender, present bowel sounds Extremities: no edema, no tenderness, no cyanosis Laboratory Tests Test 10/10/20 10:30 White Blood Count 13.9 K/UL (4.8-10.8) H Red Blood Count 4.90 M/UL (4.70-6.10) Hemoglobin 10.0 G/DL (14.2-18.0) L Hematocrit 32.0 % (42.0-52.0) L Mean Corpuscular Volume 65 FL (80-99) L Mean Corpuscular Hemoglobin 20.4 PG (27.0-31.0) L Mean Corpuscular Hemoglobin Concent 31.3 G/DL (32.0-36.0) L Red Cell Distribution Width 18.7 % (11.6-14.8) H Platelet Count 288 K/UL (150-450) Mean Platelet Volume 9.5 FL (6.5-10.1) Neutrophils (%) (Auto) 74.5 % (45.0-75.0) Lymphocytes (%) (Auto) 8.9 % (20.0-45.0) L Monocytes (%) (Auto) 5.7 % (1.0-10.0) Eosinophils (%) (Auto) 9.9 % (0.0-3.0) H Basophils (%) (Auto) 0.9 % (0.0-2.0) Sodium Level 137 MMOL/L (136-145) Potassium Level 3.8 MMOL/L (3.5-5.1) Chloride Level 101 MMOL/L (98-107) Carbon Dioxide Level 26 MMOL/L (21-32) Anion Gap 10 mmol/L (5-15) Blood Urea Nitrogen 9 mg/dL (7-18) Creatinine 0.7 MG/DL (0.55-1.30) Estimat Glomerular Filtration Rate > 60 mL/min (>60) Glucose Level 84 MG/DL (74-106) Calcium Level 9.6 MG/DL (8.5-10.1) Total Bilirubin 2.5 MG/DL (0.2-1.0) H Direct Bilirubin 2.0 MG/DL (0.0-0.3) H Aspartate Amino Transf (AST/SGOT) 32 U/L (15-37) Alanine Aminotransferase (ALT/SGPT) 47 U/L (12-78) Alkaline Phosphatase 379 U/L (46-116) H Total Protein 6.5 G/DL (6.4-8.2) Albumin 2.5 G/DL (3.4-5.0) L Globulin 4.0 g/dL Albumin/Globulin Ratio 0.6 (1.0-2.7) L Plan Problems: (1) Metastatic cancer Assessment & Plan: Informed consent obtained prior to commencement of the procedure. Risks, including but not limited to hemorrhage, infection, sampling error discussed with patient, all questions answered. He indicated his willingness to proceed. Ultrasound used to localize the optimal puncture site in the left chest subcutaneous soft tissues. Sterile prepping and draping with maximum barrier sterile technique including sterile ultrasound gel and sterile ultrasound probe cover. Local anesthesia with one percent lidocaine. Under real-time ultrasound guidance, total 4 needle passes made into the anterior left chest wall using 18-gauge coaxial needle with an Achieve automated biopsy gun. Specimens placed in formalin, submitted to pathology. The patient tolerated the procedure well, without immediate complication. Comparison: CT chest dated 10/07/2020. Findings: Initial ultrasound demonstrating large heterogeneous soft tissue mass interposed between and above left anterior ribs corresponding to CT chest findings. Impression: Successful ultrasound-guided coaxial core needle biopsy of left chest wall mass. No evidence of postbiopsy hematoma. pending path (2) Bone metastases (3) Liver metastases Assessment & Plan: very concerning CT panc mass liver mets lung mass needs tissue diagnosis biopsy ct guided liver may need eus with bx prognosis guarded no acute surgical intervention will follow with recs as biopsy available ABDOMEN: Liver: Multiple ill-defined masses in the hepatic parenchyma by most consistent with metastases. Gallbladder and bile ducts: Poorly defined mass in the region of the proximal pancreas partially surrounding segments of the extrahepatic bile duct. Mass difficult to separate from adjacent structures. Moderate intrahepatic and significant extrahepatic biliary ductal dilatation. Extrahepatic biliary ductal dilatation measures up to 13.5 mm. Mass unclear if of pancreatic origin or possibly of the biliary tree. There is moderate pancreatic ductal dilatation. The gallbladder is significantly distended with irregular gallbladder wall thickening. No gallstones identified. Unclear if wall thickening is malignant or inflammatory. Pancreas: See above. Spleen: Small indeterminate low attenuation focus anterior spleen. No splenomegaly. Adrenals: Unremarkable. No mass. Kidneys and ureters: Slightly irregular lesion in the anterior mid right renal pole measuring 55 HU and likely solid. Smaller foci are noted posterior and more inferior left kidney. These are indeterminate for primary or metastatic metastases. Similar lesion right kidney medial midpole and subcentimeter foci superior right upper renal pole. These are also likely solid and likely metastases. No hydronephrosis. Stomach and bowel: Moderate to large amount of retained stool in the colon. Negative for lower GI tract obstruction or pneumatosis. No mucosal thickening. PELVIS: Appendix: No findings to suggest acute appendicitis. Bladder: See below. Reproductive: Moderate irregular enlargement of the prostate gland. There is mass-effect on the posterior bladder base. Findings indeterminate for malignancy. ABDOMEN and PELVIS: Intraperitoneal space: Unremarkable. No free air. No significant fluid collection. Bones/joints: Irregular sclerotic focus left iliac bone adjacent to the SI joint, indeterminate for metastasis. There are additional small irregular sclerotic foci that are also indeterminate for metastases. No acute fracture. No dislocation. Soft tissues: Unremarkable. Vasculature: Unremarkable. No abdominal aortic aneurysm. Lymph nodes: Mesenteric and retroperitoneal lymphadenopathy in the abdomen. IMPRESSION: Large mass in the region of the proximal pancreas partially surrounding the extrahepatic bile duct. There is significant intra-and extrahepatic biliary ductal dilatation. Finding is likely malignant. Adjacent mesenteric and retroperitoneal lymphadenopathy. Multiple hepatic metastases. Irregular gallbladder wall thickening indeterminate for inflammatory or neoplastic infiltration. Probable osteoblastic metastases. Findings highly suggestive of bilateral renal metastases. EXAM: CT Chest With Intravenous Contrast CLINICAL HISTORY: CP TECHNIQUE: Axial computed tomography images of the chest with intravenous contrast. CTDI is 3 mGy and DLP is 147.2 mGy-cm. One or more of the following dose reduction techniques were used: automated exposure control, adjustment of the mA and/or kV according to patient size, use of iterative reconstruction technique. COMPARISON: No relevant prior studies available. FINDINGS: Lungs: Heterogeneously enhancing mass anterior left upper lobe invading into the mediastinum, extending through the pleura into the anterior chest wall with involvement of at least the first 3 ribs on the left. Intrathoracic portion of the mass measures approximately 12.8 cm craniocaudad, up to 4.1 cm AP and 6.9 cm transverse. The portion of the mass involving the chest wall retropectoral but likely invades and involves the pectoralis muscle measures approximately 2.4 x 9.6 x 8.7 cm. There are multiple adjacent ill-defined satellite nodules in the left upper lobe. Moderate underlying centrilobular emphysema. Indeterminate pleural-based nodule lateral left lower lobe measuring approximately 8.5 x 3.5 mm. Pleural space: Unremarkable. No pneumothorax. No significant effusion. Heart: Unremarkable. No cardiomegaly. No significant pericardial effusion. Bones/joints: Age indeterminate fracture T12 body with mild depression. Soft tissues: See above. Vasculature: Unremarkable. No thoracic aortic aneurysm. Lymph nodes: Unremarkable. No enlarged lymph nodes. IMPRESSION: Malignant mass anterior right upper lobe extending to involve the chest wall. Adjacent satellite nodules and bony involvement anterior ribs on the left. Age-indeterminate mild fracture deformity T12. (4) COVID-19 ruled out by laboratory testing (5) Leukocytosis (6) Weight loss (7) Pancreatic mass Clayton Huntley Oct 10, 2020 11:33
--- NOTE | 2020-10-10 11:52 | Discharge Instructions ---
Discharge Instructions Discharge Instructions Follow up with: PCP Diet: regular Activity: as tolerated For Congestive Heart Failure Reminder Report to your physician any weight gain of 5 pounds or more in one week. Carlos Cintron Oct 10, 2020 11:52
[2020-10-10 12:00] VITALS: BP 141/79
--- NOTE | 2020-10-10 12:58 | NUR ---
CASE MANAGEMENT:REVIEW 10/10/20 SI: PANCREATIC CARCINOMA W/METS. HTN 98.3 96 19 141/79 97% ON RA WBC+13.9 IS: IVF@50/HR HEPARIN SQ Q12 NORVASC PO QD LISINOPRIL PO QD ASA PO QD IV DILAUDID Q4HRS PRN : MED/SURG STATUS 4 EAST DCP: FROM HOME PLAN: DISCHARGE HOME TODAY WITH [facility] T: [phone] F: [phone] HOSPICE HAS ARRANGED FOR AMBULANCE TO BE HERE AT 1900 TO HEALTH ADVOCATE PATIENT
--- NOTE | 2020-10-10 15:31 | Pulmonology Progress Note ---
Subjective ROS Limited/Unobtainable: Yes Interval Events: none major Constitutional: Reports: anorexia; Denies: fever, chills, drenching sweats HEENT: Repors: no symptoms Respiratory: Reports: no symptoms Cardiovascular: Reports: no symptoms Gastrointestinal/Abdominal: Reports: constipation Allergies: Coded Allergies: PENICILLINS (Verified Allergy, Unknown, 10/07/20) Objective Last 24 Hour Vital Signs Date Time Temp Pulse Resp B/P (MAP) Pulse Ox O2 Delivery O2 Flow Rate FiO2 10/10/20 12:00 98.3 96 19 141/79 (99) 97 10/10/20 09:57 102 126/80 10/10/20 09:57 126/80 10/10/20 09:00 Room Air 10/10/20 08:00 98.4 102 19 126/80 (95) 96 10/10/20 04:00 98.4 74 22 129/74 (92) 97 10/10/20 00:00 97.4 74 20 127/74 (91) 98 10/09/20 22:05 Room Air 10/09/20 20:00 98.5 87 18 127/74 (91) 98 10/09/20 16:00 98.0 92 18 120/63 (82) 95 Intake and Output 10/09/20 10/10/20 19:00 07:00 Intake Total 950 ml Output Total 500 ml Balance 950 ml -500 ml Intake Oral 400 ml IV Total 550 ml Output Urine Total 500 ml # Voids 2 Objective 10/10/2020 pt was in bed; saturating well on RA; NAD 10/09/2020 pt in bed using his phone; NAD; saturating well on RA General Appearance: no acute distress, cachetic HEENT: normocephalic, atraumatic Respiratory: decreased breath sounds Cardiovascular: normal rate, regular rhythm, no gallop/murmur Abdomen: hypoactive bowel sounds, other - tender Skin: no rash Neurologic: alert, oriented x 3 Microbiology Date/Time Source Procedure Growth Status 10/07/20 20:45 Nasopharynx SARS-CoV-2 RdRp Gene Assay - Final Complete Laboratory Tests 10/10/20 10:30: White Blood Count 13.9H, Red Blood Count 4.90, Hemoglobin 10.0L, Hematocrit 3 2.0L, Mean Corpuscular Volume 65L, Mean Corpuscular Hemoglobin 20.4L, Mean Corpuscular Hemoglobin Concent 31.3L, Red Cell Distribution Width 18.7H, Platelet Count 288, Mean Platelet Volume 9.5, Neutrophils (%) (Auto) 74.5, Lymphocytes (%) (Auto) 8.9L, Monocytes (%) (Auto) 5.7, Eosinophils (%) (Auto) 9.9H, Basophils (%) (Auto) 0.9, Sodium Level 137, Potassium Level 3.8, Chloride Level 101, Carbon Dioxide Level 26, Anion Gap 10, Blood Urea Nitrogen 9, Creatinine 0.7, Estimat Glomerular Filtration Rate > 60, Glucose Level 84, Calcium Level 9.6, Total Bilirubin 2.5H, Direct Bilirubin 2.0H, Aspartate Amino Transf (AST/SGOT) 32, Alanine Aminotransferase (ALT/SGPT) 47, Alkaline Phosphatase 379H, Total Protein 6.5, Albumin 2.5L, Globulin 4.0, Albumin/Globulin Ratio 0.6L Current Medications Medications (Trade) Dose Ordered Sig/Melani Route PRN Reason Start Time Stop Time Status Last Admin Dose Admin Acetaminophen (Tylenol) 500 mg Q6H PRN ORAL Temp >100.5 10/08/20 10:00 11/07/20 09:59 Acetaminophen (Tylenol) 650 mg Q4H PRN ORAL Mild Pain (Pain Scale 1-3) 10/08/20 12:15 11/07/20 12:14 Amlodipine Besylate (Norvasc) 5 mg DAILY ORAL 10/08/20 10:00 11/07/20 09:59 10/10/20 09:57 Aspirin (ASA) 81 mg DAILY ORAL 10/08/20 10:00 11/22/20 09:59 10/10/20 09:56 Dextrose (Dextrose 50%) 25 ml Q30M PRN IV Hypoglycemia 10/08/20 12:15 01/06/21 12:14 Dextrose (Dextrose 50%) 50 ml Q30M PRN IV Hypoglycemia 10/08/20 12:15 01/06/21 12:14 Docusate Sodium (Colace) 100 mg DAILY ORAL 10/09/20 09:00 11/08/20 08:59 10/10/20 09:57 Folic Acid (Folate) 1 mg DAILY ORAL 10/11/20 09:00 11/10/20 08:59 Heparin Sodium (Porcine) (Heparin 5000 units/ml) 5,000 units EVERY 12 HOURS SUBQ 10/08/20 21:00 11/22/20 20:59 10/10/20 09:59 Hydromorphone HCl (Dilaudid) 1 mg Q4H PRN IVP pain 4-10 10/08/20 09:15 10/15/20 09:14 10/09/20 15:58 Lactulose (Cephulac) 20 gm Q6H PRN ORAL Constipation 10/09/20 17:30 11/08/20 17:29 10/10/20 11:02 Lisinopril (ZestriL) 10 mg DAILY ORAL 10/08/20 10:00 11/07/20 09:59 10/10/20 09:57 Oxycodone HCl (Roxicodone) 5 mg Q4HR ORAL 10/09/20 17:00 10/16/20 16:59 10/10/20 13:46 Pravastatin Sodium (Pravachol) 40 mg BEDTIME ORAL 10/08/20 21:00 11/07/20 20:59 10/09/20 21:06 Sodium Chloride 1,000 ml @ 50 mls/hr Q20H IVLG 10/08/20 13:15 11/07/20 13:14 10/10/20 04:48 Vitamin D (Vitamin D) 1,000 intlu DAILY ORAL 10/08/20 10:00 11/07/20 09:59 10/10/20 09:56 Assessment/Plan Assessment/Plan 1. 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 2. Hx of Hypertension. 3. Hyperlipidemia. 4. Anemia DISCUSSION: Additional findings include a mass in the left upper lobe and between mediastinum extending to the pleura into the anterior chest wall with the first 2 ribs as well. He also has emphysema. Metastatic carcinoma suspected. Liver biopsy is recommended to which pt agreed. He may be a estefania te for chemotherapy versus palliative care. S/p lung mass biopsy; results pending Discussed in detail with patient and daughter dc home today with hospice; home med Rx provided; pain med given The care for this patient was discussed with my supervising physician Time spent for this case was approximately 31 minutes The patient was seen and examined at bedside and all new and available data was reviewed in the patients chart. I agree with the above findings, impression, and plan. (Patient was seen earlier today. Signature timestamp does not reflect patient encounter time) Carlos Cornejo MD Oct 10, 2020 15:31 Bernard Myers MD Oct 10, 2020 17:01
[2020-10-10 16:00] VITALS: BP 142/81
[2020-10-10] MEDS ORDERED: OXYCODONE HCL5 M2 ORAL (18:16)
--- NOTE | 2020-10-10 18:37 | CDS Physician Query ---
Clarification is required for compliance, coding accuracy, and to reflect severity of illness for this patient Dear Dr. Bernard Myers M.D. Date: 10/10/2020 CDIS Name: Aubrey Nguyen 74-year-old male who presents to the hospital with weight loss. He also reported nausea and emesis. He also reported epigastric and sternal chest pain. [ H&P Bernard Myers M.D. 10/08] IMPRESSION: 1. 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 2. Hypertension. 3. Hyperlipidemia. NUTRITION DIAGNOSIS: Increased kcal and pro needs r/t weight loss, suspected mets dz as evidenced by pt reports 14# wt loss, 10% wt change, BMI underweight per guidelines, pt is 70% of ideal body weight, w/ lung and pancreatic mass, w/ liver mets. Clinical Finding Show: BMI: 16.7 kg/m2 LAB (10/07) : Chem: Albumin 3.0 [3.4-5.0], Calcium 9.6 [ 8.5-10.1] (10/09) : Chem: Albumin 2.5 [3.4-5.0], Calcium 9.4 [ 8.5-10.1] Please select the most appropriate option: [] Protein/Calorie Malnutrition [] Mild [x] Moderate [] Severe [] Hypoalbuminemia [] Cachexia [] Underweight [] Intestinal malabsorption [] Other [] Unable to determine [] Not Applicable Present on Admission: [x] Yes [] No [] Clinically Undetermined Physician signature Date Please also document in your Progress Notes and/or Discharge Summary and indicate if the condition was present on admission. MTDD
[2020-10-10] MEDS: HYDROmorphone 1mg/ml Carpuject IVP PRN ×2 (18:38→19:17)
--- NOTE | 2020-10-10 19:03 | NUR ---
NURSE NOTES: patient has been discharged to home with [facility]. Taken IV access off, no bleeding noted after site compression. Given dilauded 1mg IV for pain prior to discharge. Patient previously received an oxycodone prescription, patient signed receipt of it. Given discharge packet with information about his condition and medication reconciliation. Patient leaves with [facility] unit 196. Report given to EMT mr. Gutierrez. Patient was anxious as he thought he lost his oxycodone prescription and was looking for it for around 15 minutes. BP 150/101. HR 121. sat 96%, RR 18, a\symptomatic. CLEMENCIA Bustamante is aware.
--- NOTE | 2020-10-10 19:08 | NUR ---
NURSE NOTES: Not done dilaudid reassessment as patient has been discharged.
--- NOTE | 2020-10-12 12:13 | Discharge Summary ---
Discharge Summary Discharge Summary _ DATE OF ADMISSION: 10/07/2020 DATE OF DISCHARGE: 10/10/2020 DISCHARGED BY: Dr. Myers REASON FOR ADMISSION: 74 years old male with past medical history of hypertension, hyperlipidemia, presented to the hospital with weight loss associated with nausea and emesis. Patient reported epigastric and substernal chest pain. He denied diarrhea. He was seen and evaluated and found to have abnormalities consistent with metastatic carcinoma Patient admitted with probable pancreatic carcinoma with metastasis. CONSULTANTS: surgery Dr. Huntley GI specialist Dr. Vazquez [facility]RSE: Patient admitted to medical surgical floor. [facility] CT revealed large mass in the region of the proximal pancreas. Partially surrounding the extrahepatic bile duct. Significant intra and extrahepatic biliary ductal dilatation findings, likely malignant. Adjacent mesenteric and retroperitoneal lymphadenopathy. Multiple hepatic metastasis. Irregular gallbladder wall thickening indeterminate for inflammatory or neoplastic infiltration. Probable osteoblastic metastasis. Findings highly suggestive of bilateral renal metastasis. CT of the chest showed malignant mass anterior right upper lobe extending to involve the chest wall. Adjacent satellite nodules and bony involvement anterior ribs on the left. Patient undergone ultrasound-guided core biopsy of the chest wall mass. Patient tolerated procedure well. No evidence of postbiopsy hematoma. At the time of this dictation pathology results still pending. Pulse oximetry remained stable on room air. Rapid COVID-19 was negative. Tumor markers revealed elevated CEA. CA 19-9 and alpha-fetoprotein within normal range. Hemoglobin and hematocrit were closely monitored with goal to keep hemoglobin above 7. Anemia work-up showed folate deficiency. Folate was replaced. Prior to discharge hemoglobin 10, hematocrit 32. GI specialist recommended EUS with biopsy and ERCP. Pain management was addressed. LFT and bilirubin remained elevated. Surgeon recommend tissue diagnosis and proceed with CT-guided liver biopsy . Overall prognosis was grim , given the widespread metastatic disease. No acute surgical intervention was necessary at this time. Patient prognosis was discussed extensively with patient's daughter , who opted for hospice services and discharge home. Patient clinically stabilized and was ready for discharge home with hospice services FINAL DIAGNOSES: Probably pancreatic carcinoma with metastasis Liver metastasis Bone metastasis Biliary dilatation Anemia Weight loss Hypertension Hyperlipidemia DISCHARGE MEDICATIONS: See Medication Reconciliation list. DISCHARGE INSTRUCTIONS: Patient was discharged home with hospice services. I have been assigned to dictate discharge summary for this account. I was not involved in the patient's management. Falguni Sagastume NP Oct 12, 2020 12:13
== END 2020-10-10 19:03 | disposition hospice, home (50) | DRG 436 ==
LOC: EMR 20:50 → 4E 23:34 → EDBEDREQ 10-08 04:34
PROC: 0WB83ZX Excision of Chest Wall, Percutaneous Approach, Diagnostic (ICD-10-PCS; principal; 2020-10-08)
DX: C25.9 Malignant neoplasm of pancreas, unspecified (principal); Z68.1 Body mass index [BMI] 19.9 or less, adult; C78.7 Secondary malignant neoplasm of liver and intrahepatic bile duct; E44.0 Moderate protein-calorie malnutrition; C79.51 Secondary malignant neoplasm of bone; D64.9 Anemia, unspecified; E78.5 Hyperlipidemia, unspecified; Z88.0 Allergy status to penicillin; I10 Essential (primary) hypertension; Z79.82 Long term (current) use of aspirin
CPT/HCPCS: 36415; 71045; 71260; 74177; 76942; 80053; 81003; 82105; 82248; 82378; 82550; 82607; 82728; 82746; 83540; 83550; 83615; 83690; 83735; 83880; 84484; 85025; 85610; 85730; 86140; 93005; 96361; 96365; 99285; J7030; U0002